=== PATIENT | female | born 1950 | race Caucasian/White ===

== ENCOUNTER 2018-06-28 16:09 | Emergency (ER) | payer OTHER ==
--- NOTE | 2018-06-28 16:25 | ER Document Report ---
ED Medical Screen (RME) - General Chief Complaint: Abdominal Pain Stated Complaint: ABDOMINAL PAIN Time Seen by Provider: 06/28/18 16:20 Mode of Arrival: Ambulatory Information source: Patient Notes: Patient is a 67-year-old female who presents to the emergency department with complaint of left lower quadrant pain that started while she was shopping this morning. She states that the pain came on in a short amount of time and describes it as a very sharp stabbing pain. She states the pain resolved and has come back intermittently. She denies any other symptoms to include nausea, vomiting, diarrhea or fevers. She reports she had abnormal bowel movement this morning and is not concerned about constipation. She states she has never had this pain before. Patient is alert, oriented and has no acute distress noted. Exam: Abdomen soft, nontender with no guarding and no rebound. I have greeted and performed a rapid initial assessment of this patient. A comprehensive ED assessment and evaluation of the patient, analysis of test results and completion of the medical decision making process will be conducted by additional ED providers. Dictation of this chart was performed using voice recognition software; therefore, there may be some unintended grammatical errors. TRAVEL OUTSIDE OF THE [place] IN LAST 30 DAYS: No - Related Data Allergies/Adverse Reactions: No Known Allergies Allergy (Verified 06/28/18 16:10) Physical Exam - Vital signs Vitals: Temp Pulse Resp BP Pulse Ox 98.0 F 93 16 155/79 H 98 06/28/18 16:14 06/28/18 16:14 06/28/18 16:14 06/28/18 16:14 06/28/18 16:14 Course - Vital Signs Vital signs: Temp Pulse Resp BP Pulse Ox 98.0 F 93 16 155/79 H 98 06/28/18 16:14 06/28/18 16:14 06/28/18 16:14 06/28/18 16:14 06/28/18 16:14
[2018-06-28 16:53] LABS: ABSOLUTE BASOPHILS # (AUTO) 0.1 10^3/uL (0.0-0.2); ABSOLUTE EOSINOPHILS # (AUTO) 0.2 10^3/uL (0.0-0.6); ABSOLUTE LYMPHOCYTES (AUTO) 2.4 10^3/uL (0.5-4.7); ABSOLUTE MONOCYTES (AUTO) 0.4 10^3/uL (0.1-1.4); ABSOLUTE NEUT (AUTO) 5.7 10^3/uL (1.7-8.2); BASOPHILS % (AUTO) 1.5 % (0-2); EOSINOPHILS % (AUTO) 2.6 % (0-6); HEMATOCRIT 43.2 % (36.0-47.0); HEMOGLOBIN 14.6 g/dL (12.0-15.5); LYMPHOCYTES % (AUTO) 26.9 % (13-45); MEAN CORPUSCULAR HGB CONC 33.7 g/dL (32.0-36.0); MEAN CORPUSCULAR VOLUME 86 fl (80-97); MONOCYTES % (AUTO) 4.8 % (3-13); PLATELET COUNT 232 10^3/uL (150-450); RED BLOOD COUNT 5.02 10^6/uL (3.72-5.28); RED CELL DISTRIBUTION WIDTH 14.4 % (11.5-14.0); SEGMENTED NEUTROPHILS % (AUTO) 64.2 % (42-78); TOTAL CELLS COUNTED % (AUTO) 100 %; WHITE BLOOD COUNT 8.8 10^3/uL (4.0-10.5)
[2018-06-28 17:09] LABS: ALANINE AMINOTRANSFERASE 40 U/L (9-52); ALBUMIN 4.8 g/dL (3.5-5.0); ALKALINE PHOSPHATASE 82 U/L (38-126); ANION GAP 13 (5-19); ASPARTATE AMINO TRANSFERASE 31 U/L (14-36); BILIRUBIN,DIRECT 0.3 mg/dL (0.0-0.4); BILIRUBIN,TOTAL 0.5 mg/dL (0.2-1.3); BLOOD UREA NITROGEN 14 mg/dL (7-20); CALCIUM 10.2 mg/dL (8.4-10.2); CARBON DIOXIDE 27 mmol/L (22-30); CHLORIDE 102 mmol/L (98-107); GLUCOSE 143 mg/dL (75-110); POTASSIUM 4.1 mmol/L (3.6-5.0); SODIUM 141.5 mmol/L (137-145)
[2018-06-28 17:14] LABS: APPEARANCE,URINE CLEAR; BILIRUBIN,URINE NEGATIVE (NEGATIVE); COLOR,URINE YELLOW; GLUCOSE, URINE NEGATIVE (NEGATIVE); KETONES,URINE NEGATIVE (NEGATIVE); LEUKOCYTE ESTERASE,URINE NEGATIVE (NEGATIVE); NITRITE,URINE NEGATIVE (NEGATIVE); PROTEIN,URINE NEGATIVE (NEGATIVE); URINE SPECIFIC GRAVITY 1.014; UROBILINOGEN,URINE NEGATIVE mg/dL (<2.0)
--- NOTE | 2018-06-28 17:56 | ER Document Report ---
ED GI/ - General Chief Complaint: Abdominal Pain Stated Complaint: ABDOMINAL PAIN Time Seen by Provider: 06/28/18 16:20 Mode of Arrival: Ambulatory Information source: Patient TRAVEL OUTSIDE OF THE [place] IN LAST 30 DAYS: No - HPI Patient complains to provider of: Abdominal pain Notes: 06/28/18 17:55 Patient with complaints of left lower quadrant abdominal pain. The patient states that she has been having the pain for the last several hours today. She states that the pain comes and goes. She states that it feels like a tingling sensation in the left lower quadrant. She denies any pain currently. She denies any nausea, vomiting, diarrhea. No dysuria or hematuria. No chest pain or shortness of breath. No fever. No rash. No injury to this area. She states that she did fall a few weeks ago landing on her coccyx and continues to have some pain in this area. She has had prior cholecystectomy, no other prior abdominal surgeries. Pain is intermittent, mild to moderate, nothing makes it better or worse. Patient denies any other complaints at this time. No history of kidney stones. - Related Data Allergies/Adverse Reactions: No Known Allergies Allergy (Verified 06/28/18 16:10) Past Medical History - General Information source: Patient - Social History Smoking Status: Former Smoker Family History: Reviewed & Not Pertinent Patient has suicidal ideation: No Patient has homicidal ideation: No Renal/ Medical History: Denies: Hx Peritoneal Dialysis Past Surgical History: Reports: Hx Breast Surgery, Hx Cholecystectomy, Hx Tubal Ligation Review of Systems - Review of Systems -: Yes All other systems reviewed and negative Physical Exam - Vital signs Vitals: Temp Pulse Resp BP Pulse Ox 98.0 F 93 16 155/79 H 98 06/28/18 16:14 06/28/18 16:14 06/28/18 16:14 06/28/18 16:14 06/28/18 16:14 - Notes Notes: GENERAL: alert, cooperative, nontoxic, no distress. HEAD: normocephalic, atraumatic EYES: conjunctiva pink without discharge, no external redness or swelling. EARS: no external swelling, no external redness NOSE: atraumatic, no external swelling MOUTH/THROAT: mucous membranes moist and pink, posterior pharynx without erythem a, swelling, exudate. No trismus or drooling. NECK: soft, supple, full range of motion, no meningismus. CHEST: no distress, lungs clear and equal throughout. No wheezing, rales, rhonchi. CARDIAC: regular rate and rhythm, no murmur, normal capillary refill, normal pulses. No peripheral edema noted. ABDOMEN: Soft, nontender. BACK: full range of motion, no CVA tenderness. EXTREMITIES: full range of motion of all extremities. No redness, no swelling. NEURO: alert and oriented x 3, no focal deficits, full range of motion of all extremities. PYSCH: appropriate mood, affect. Patient is cooperative. SKIN: pink, warm, dry, no rash. Course - Re-evaluation Re-evalutation: 06/28/18 19:25 Patient is nontoxic-appearing with stable vitals. Patient is here with complaints of left lower quadrant pain that started earlier today. The pain seems to come and go. No vomiting or diarrhea. No fevers. She had no significant tenderness on exam at this time. Lab work is unremarkable. Urinalysis is unremarkable. CT of the abdomen and pelvis shows diverticulosis with possible early diverticulitis of the sigmoid colon. Patient will be given a dose of antibiotics here in emergency department will be discharged home with pain medication as well as Cipro and Flagyl. Referral to GI. Follow-up with her doctor at the next available appointment. I discussed food items that she should avoid eating due to her diverticulosis/diverticulitis. She should follow-up sooner if she develops any worsening pain, high fever, persistent vom iting, blood in her stool, or for any further concerns. Since the patient is afebrile, has a normal white count, has no abscess or perforation on her CT and has very early/mild diverticulitis, I do believe that the patient is safe for discharge home with oral antibiotics. The patient's emergency department workup and current diagnosis were explained to the patient and or family. Follow-up instructions were provided. Medications if prescribed were discussed. Instructions for when to return to the emergency department including specific worrisome symptoms were discussed with the patient and/or family. - Vital Signs Vital signs: Temp Pulse Resp BP Pulse Ox 98.0 F 93 16 155/79 H 98 06/28/18 16:14 06/28/18 16:14 06/28/18 16:14 06/28/18 16:14 06/28/18 16:14 - Laboratory Result Diagrams: 06/28/18 16:42 06/28/18 16:42 Laboratory results interpreted by me: 06/28/18 06/28/18 16:42 16:42 RDW 14.4 H Glucose 143 H - Diagnostic Test Radiology reviewed: Image reviewed, Reports reviewed - Diverticulosis with possible early diverticulitis of the sigmoid colon. Pars defect with anterior listhesis. Discharge - Discharge Clinical Impression: Diverticulitis Condition: Stable Disposition: HOME, SELF-CARE Instructions: Diverticulitis ([facility]) Additional Instructions: Take medications as prescribed. Drink plenty fluids. Follow-up with your doctor at the next available appointment. Follow-up with GI at the next available appointment. Follow-up sooner for worsening pain, high fever, persistent vomiting, blood in your stool, or for any further concerns. Prescriptions: Ciprofloxacin HCl [Cipro 500 mg Tablet] 500 mg PO BID #20 tablet Fluconazole [Diflucan 100 Mg Tablet] 100 mg PO ONCE #1 tablet Hydrocodone/Acetaminophen [[place] 5-325 mg Tablet] 2 tab PO Q6H PRN #15 tab PRN Reason: Metronidazole [Flagyl 500 mg Tablet] 500 mg PO Q6H #40 tablet Referrals: FREDERIC MARQUES MD [ACTIVE STAFF] - Follow up as needed
--- NOTE | 2018-06-28 18:57 | RADIOLOGY REPORT (SQ) ---
EXAM DESCRIPTION: CT ABD/PELVIS WITH IV ONLY COMPLETED DATE/TIME: 06/28/2018 6:28 pm REASON FOR STUDY: LLQ abdominal pain COMPARISON: None. TECHNIQUE: CT scan of the abdomen and pelvis performed using helical scanning technique with dynamic intravenous contrast injection. No oral contrast. Images reviewed with lung, soft tissue, and bone windows. Reconstructed coronal and sagittal MPR images reviewed. Delayed images for evaluation of the urinary system also acquired. All images stored on PACS. All CT scanners at this facility use dose modulation, iterative reconstruction, and/or weight based d osing when appropriate to reduce radiation dose to as low as reasonably achievable (ALARA). [facility]: Dose Right [facility]: CareDose [facility]: Dose Right [facility]: Teradose 4D [facility]: [facility] CONTRAST TYPE AND DOSE: contrast/concentration: Isovue 350.00 mg/ml; Total Contrast Delivered: 98.0 ml; Total Saline Delivered: 72.0 ml RENAL FUNCTION: Creatinine 0.90 RADIATION DOSE: CT Rad equipment meets quality standard of care and radiation dose reduction techniq ues were employed. CTDIvol: 15.6 - 19.0 mGy. DLP: 1882 mGy-cm.. LIMITATIONS: None. FINDINGS: LOWER CHEST: No consolidation or pleural effusion. Coronary arteries calcifications are n oted. LIVER: The liver is enlarged measuring 21.3 cm in craniocaudal diameter. There is diffuse decreased attenuation, most consistent with fatty infiltration. There is a 2.6 cm lesion with peripheral nodul ar enhancement on the early phase of contrast, this becomes isodense on the delayed images, at the in ferior right hepatic lobe, segment 5, appearance most consistent with a hemangioma. No dilated ducts . SPLEEN: Normal size. No focal lesions. PANCREAS: No significant calcifications. No adjacent inflammation or peripancreatic fluid collections . Pancreatic duct not dilated. GALLBLADDER: Surgically absent. ADRENAL GLANDS: No significant masses or asymmetry. RIGHT KIDNEY AND URETER: No significant calcifications. No hydronephrosis or hydroureter. LEFT KIDNEY AND URETER: There is a 2.3 cm cyst at the left kidney. No significant calcifications. No hydronephrosis or hydroureter. AORTA AND VESSELS: Atherosclerotic calcifications within the abdominal aorta and its branches. No ab dominal aortic aneurysm. There is a circumaortic left renal vein. RETROPERITONEUM: No retroperitoneal adenopathy, hemorrhage or masses. BOWEL AND PERITONEAL CAVITY: No dilated bowel loops to suggest obstruction. No free fluid or free ai r. There is colonic diverticulosis. Mild soft tissue stranding adjacent to the sigmoid colon. APPENDIX: Normal. PELVIS: The urinary bladder is decompressed. The uterus is present. Bilateral tubal ligation clips are noted. No free fluid. ABDOMINAL WALL: Small fat containing umbilical hernia. BONES: There is bilateral pars defect at L5 with mild anterolisthesis of L5 on S1. There is multilev el degenerative disc disease with osteophytosis, worse at L5-S1. IMPRESSION: 1. Colonic diverticulosis. Mild inflammatory changes adjacent to the sigmoid colon, m ay represent mild/early acute diverticulitis. 2. 2.6 cm hepatic hemangioma. Hepatomegaly. Fatty infiltration of the liver. 3. Bilateral pars defect at L5 with mild anterolisthesis of L5 on S1. TECHNICAL DOCUMENTATION: JOB ID: [id number]-64 Quality ID # [id number]: Final reports with documentation of one or more dose reduction techniques (e.g., Au tomated exposure control, adjustment of the mA and/or kV according to patient size, use of iterative reconstruction technique) 2010 [employer]- All Rights Reserved Reading location - IP/workstation name: [email or web address]
[2018-06-28] MEDS ORDERED: CIPROFLOXACIN HCL 500 MG TABLET PO ONE (19:44)
[2018-06-28] MEDS ORDERED: METRONIDAZOLE 500 MG TABLET PO ONE (19:44)
[2018-06-28 20:14] VITALS: BP 143/75
== END 2018-06-28 20:14 | disposition home or self-care (01) ==
LOC: ER 16:09
DX: K57.92 Diverticulitis of intestine, part unspecified, without perforation or abscess without bleeding (principal); R10.9 Unspecified abdominal pain; R10.32 Left lower quadrant pain; W19.XXXA Unspecified fall, initial encounter; Z90.49 Acquired absence of other specified parts of digestive tract; Z87.891 Personal history of nicotine dependence
CPT/HCPCS: 36415; 74177; 80053; 81001; 85025; 99284

== ENCOUNTER 2018-07-31 21:33 | Inpatient (IN) | payer OTHER, MEDICARE ==
[2018-07-31] MEDS ORDERED: ACETAMINOPHEN 325 MG TABLET PO ONE (22:12)
--- NOTE | 2018-07-31 23:14 | RADIOLOGY REPORT (SQ) ---
EXAM DESCRIPTION: XR CHEST 2 VIEWS COMPLETED DATE/TME: 07/31/2018 22:13 CLINICAL HISTORY: 68 years, Female, fever COMPARISON: None. NUMBER OF VIEWS: 2 TECHNIQUE: 2 views of the chest LIMITATIONS: None. FINDINGS: Heart size is normal. Lungs are clear. No pneumothorax. Surgical clips upper abdomen IMPRESSION: No acute cardiopulmonary process copyright 2010 [employer]- All Rights Reserved
[2018-07-31 23:43] LABS: VENOUS BLOOD BASE EXCESS 3.7 mmol/L; VENOUS BLOOD HCO3 28.9 mmol/L (20-32); VENOUS BLOOD PCO2 45.3 mmHg (35-63); VENOUS BLOOD PH 7.42 (7.30-7.42)
[2018-07-31 23:47] LABS: HEMATOCRIT 37.5 % (36.0-47.0); HEMOGLOBIN 12.7 g/dL (12.0-15.5); MEAN CORPUSCULAR HEMOGLOBIN 28.7 pg (27.0-33.4); MEAN CORPUSCULAR VOLUME 85 fl (80-97); RED BLOOD COUNT 4.44 10^6/uL (3.72-5.28); RED CELL DISTRIBUTION WIDTH 14.1 % (11.5-14.0)
[2018-07-31 23:50] LABS: APPEARANCE,URINE SLIGHTLY-CLOUDY; BILIRUBIN,URINE NEGATIVE (NEGATIVE); COLOR,URINE AMBER; GLUCOSE, URINE NEGATIVE (NEGATIVE); INTERNATIONAL RATION (INR) 1.06; KETONES,URINE NEGATIVE (NEGATIVE); LEUKOCYTE ESTERASE,URINE SMALL (NEGATIVE); NITRITE,URINE NEGATIVE (NEGATIVE); PROTEIN,URINE 100 mg/dL (NEGATIVE); PROTHROMBIN TIME 14.4 SEC (11.4-15.4); URINE SPECIFIC GRAVITY 1.028
[2018-08-01 00:03] LABS: ABSOLUTE LYMPHOCYTES# (MANUAL) 1.1 10^3/uL (0.5-4.7); ABSOLUTE MONOCYTES # (MANUAL) 1.5 10^3/uL (0.1-1.4); ABSOLUTE NEUTROPHILS# (MANUAL) 11.2 10^3/uL (1.7-8.2); BAND NEUTROPHILS % (MANUAL) 2 % (3-5); BASOPHILS % (MANUAL) 0 % (0-2); EOSINOPHILS % (MANUAL) 1 % (0-6); LYMPHOCYTES % (MANUAL) 8 % (13-45); MONOCYTES % (MANUAL) 11 % (3-13); PLATELET CLUMPS PRESENT; PLATELET COMMENT ADEQUATE; SEGMENTED NEUTROPHILS % (MAN) 78 % (42-78); TOTAL CELLS COUNTED 100
[2018-08-01 00:04] LABS: PLATELET COUNT 216 10^3/uL (150-450); RBC MORPHOLOGY COMMENT NORMO-CYTIC/CHROMIC
[2018-08-01 00:13] LABS: ALANINE AMINOTRANSFERASE 44 U/L (9-52); ALBUMIN 4.1 g/dL (3.5-5.0); ALKALINE PHOSPHATASE 160 U/L (38-126); ANION GAP 16 (5-19); ASPARTATE AMINO TRANSFERASE 60 U/L (14-36); BILIRUBIN,DIRECT 0.5 mg/dL (0.0-0.4); BILIRUBIN,TOTAL 0.8 mg/dL (0.2-1.3); BLOOD UREA NITROGEN 19 mg/dL (7-20); CALCIUM 9.9 mg/dL (8.4-10.2); CARBON DIOXIDE 25 mmol/L (22-30); CHLORIDE 94 mmol/L (98-107); GLUCOSE 127 mg/dL (75-110); POTASSIUM 4.4 mmol/L (3.6-5.0); SODIUM 134.5 mmol/L (137-145); TOTAL PROTEIN 7.3 g/dL (6.3-8.2)
--- NOTE | 2018-08-01 01:44 | ER Document Report ---
ED Medical Screen (RME) - General Chief Complaint: Fever Stated Complaint: FEVER AND HEADACHE Time Seen by Provider: 08/01/18 01:38 Notes: 68-year-old otherwise healthy female presents to emergency department for fever and chills, multiple boils, and severe headache. She said that she has had boils started developing about a week ago and have gotten to the point where she is unable to sit comfortably. There is one in her right gluteal cleft, another one in her right proximal medial thigh, and another one in her lower abdomen. She says she has another small one on her face and 2 small ones on her labia of her vagina. Patient is tachycardic at 108. Patient has been running fevers greater than 102 but took Aleve at 1900 tonight. Exam: Right gluteal cleft with a large erythematous area that is indurated and painful to touch. Right proximal medial thigh with large area of induration and surrounding erythema that appears cellulitic with small amount of purulent oozing. Erythematous area on her lower abdomen with a scab. I have greeted and performed a rapid initial assessment of this patient. A comprehensive ED assessment and evaluation of the patient, analysis of test results and completion of medical decision making process will be conducted by an additional ED providers. TRAVEL OUTSIDE OF THE [place] IN LAST 30 DAYS: No - Related Data Allergies/Adverse Reactions: No Known Allergies Allergy (Verified 06/28/18 16:10) Past Medical History Renal/ Medical History: Denies: Hx Peritoneal Dialysis Past Surgical History: Reports: Hx Breast Surgery, Hx Cholecystectomy, Hx Tubal Ligation Physical Exam - Vital signs Vitals: Temp Pulse Resp BP Pulse Ox 100.3 F 109 H 18 117/66 96 07/31/18 21:47 07/31/18 21:47 07/31/18 21:47 07/31/18 21:47 07/31/18 21:47 Course - Vital Signs Vital signs: Temp Pulse Resp BP Pulse Ox 100.3 F 109 H 18 117/66 96 07/31/18 21:47 07/31/18 21:47 07/31/18 21:47 07/31/18 21:47 07/31/18 21:47 - Laboratory Result Diagrams: 07/31/18 23:21 07/31/18 23:21 Laboratory results interpreted by me: 07/31/18 07/31/18 07/31/18 23:21 23:21 23:21 WBC 14.0 H RDW 14.1 H Band Neutrophils % 2 L Lymphocytes % (Manual) 8 L Abs Neuts (Manual) 11.2 H Abs Monocytes (Manual) 1.5 H Sodium 134.5 L Chloride 94 L Est GFR (Non-Af Amer) 57 L Glucose 127 H Direct Bilirubin 0.5 H AST 60 H Alkaline Phosphatase 160 H Urine Protein 100 H Urine Urobilinogen 4.0 H Ur Leukocyte Esterase SMALL H Urine Ascorbic Acid 20 H
[2018-08-01] MEDS ORDERED: ACETAMINOPHEN 325 MG TABLET ONE (03:32)
[2018-08-01] MEDS ORDERED: VANCOMYCIN HCL INJ 1000 MG VIAL IV ONE (05:46)
[2018-08-01] MEDS ORDERED: METOCLOPRAMIDE HCL INJ/PF 10 MG/2 ML SDV IV ONE (05:46)
[2018-08-01] MEDS ORDERED: DIPHENHYDRAMINE HCL 50 MG/ML VIAL IV ONE (05:46)
[2018-08-01] MEDS: NORMAL SALINE 1000 ML 1,000 ML IV PRN ×3 (05:50→10:49)
[2018-08-01] MEDS ORDERED: NORMAL SALINE 1000 ML 1,000 ML IV ONE (06:44)
[2018-08-01 07:33] LABS: ALANINE AMINOTRANSFERASE 41 U/L (9-52); ALBUMIN 3.1 g/dL (3.5-5.0); ALKALINE PHOSPHATASE 123 U/L (38-126); ANION GAP 10 (5-19); ASPARTATE AMINO TRANSFERASE 33 U/L (14-36); BILIRUBIN,DIRECT 0.4 mg/dL (0.0-0.4); BILIRUBIN,TOTAL 0.7 mg/dL (0.2-1.3); BLOOD UREA NITROGEN 18 mg/dL (7-20); CALCIUM 8.8 mg/dL (8.4-10.2); CARBON DIOXIDE 25 mmol/L (22-30); CHLORIDE 99 mmol/L (98-107); CREATINE KINASE 35 U/L (30-135); GLUCOSE 117 mg/dL (75-110); POTASSIUM 3.9 mmol/L (3.6-5.0); SODIUM 133.5 mmol/L (137-145); TOTAL PROTEIN 5.7 g/dL (6.3-8.2)
[2018-08-01 07:35] LABS: HEMATOCRIT 33.5 % (36.0-47.0); HEMOGLOBIN 11.3 g/dL (12.0-15.5); MEAN CORPUSCULAR HEMOGLOBIN 28.5 pg (27.0-33.4); MEAN CORPUSCULAR HGB CONC 33.8 g/dL (32.0-36.0); MEAN CORPUSCULAR VOLUME 84 fl (80-97); PLATELET COUNT 175 10^3/uL (150-450); RED BLOOD COUNT 3.97 10^6/uL (3.72-5.28); WHITE BLOOD COUNT 13.9 10^3/uL (4.0-10.5)
[2018-08-01 07:41] LABS: AMORPHOUS SEDIMENT,URINE 1+ /HPF; APPEARANCE,URINE SLIGHTLY-CLOUDY; BILIRUBIN,URINE NEGATIVE (NEGATIVE); COLOR,URINE YELLOW; GLUCOSE, URINE NEGATIVE (NEGATIVE); KETONES,URINE NEGATIVE (NEGATIVE); LEUKOCYTE ESTERASE,URINE NEGATIVE (NEGATIVE); NITRITE,URINE NEGATIVE (NEGATIVE); PROTEIN,URINE NEGATIVE (NEGATIVE); URINE SPECIFIC GRAVITY 1.012; UROBILINOGEN,URINE NEGATIVE mg/dL (<2.0)
--- NOTE | 2018-08-01 07:44 | EKG REPORT ---
SEVERITY:- NORMAL ECG - SINUS RHYTHM : Confirmed by: Allen Elias MD 01-Aug-2018 07:43:16
[2018-08-01 08:06] LABS: ABSOLUTE LYMPHOCYTES# (MANUAL) 0.3 10^3/uL (0.5-4.7); ABSOLUTE MONOCYTES # (MANUAL) 0.8 10^3/uL (0.1-1.4); ABSOLUTE NEUTROPHILS# (MANUAL) 12.5 10^3/uL (1.7-8.2); BAND NEUTROPHILS % (MANUAL) 6 % (3-5); BASOPHILS % (MANUAL) 2 % (0-2); EOSINOPHILS % (MANUAL) 0 % (0-6); LYMPHOCYTES % (MANUAL) 2 % (13-45); MONOCYTES % (MANUAL) 6 % (3-13); SEGMENTED NEUTROPHILS % (MAN) 84 % (42-78); TOTAL CELLS COUNTED 100
[2018-08-01 08:07] LABS: ANISOCYTOSIS SLIGHT; PLATELET COMMENT ADEQUATE
--- NOTE | 2018-08-01 08:39 | ER Document Report ---
Entered by INGRID VIVEROS SCRIBE 08/01/18 0721 Acting as scribe for:NICOLE MEDEL MD ED General - General Chief Complaint: Fever Stated Complaint: FEVER AND HEADACHE Time Seen by Provider: 08/01/18 01:38 Primary Care Provider: JANET,AUDREY [Primary Care Provider] - Follow up as needed Mode of Arrival: Ambulatory Information source: Patient Notes: 68 year old female that presents to the emergency department today with complaints of a x5 day history of "multiple boils" spread across her body. Patient reports she has had an associated headache as well for the last x5 days. Patient states she has also had an associated headache for x4 of the last x5 days. Patient states she was in a bathtub when she noticed the first boil which was located on the right buttock. Patient states the other boils appears shortly after. TRAVEL OUTSIDE OF THE [place] IN LAST 30 DAYS: No - Related Data Allergies/Adverse Reactions: No Known Allergies Allergy (Verified 06/28/18 16:10) Past Medical History - General Information source: Patient - Social History Smoking Status: Former Smoker Cigarette use (# per day): No - quit x25 years ago Chew tobacco use (# tins/day): No Frequency of alcohol use: Rare Drug Abuse: None Lives with: Family Family History: Reviewed & Not Pertinent Patient has suicidal ideation: No Patient has homicidal ideation: No Past Surgical History: Reports: Hx Breast Surgery - reduction, Hx Cholecystectomy, Hx Tubal Ligation Review of Systems - Review of Systems Constitutional: No symptoms reported EENT: No symptoms reported Cardiovascular: No symptoms reported Respiratory: No symptoms reported Gastrointestinal: No symptoms reported Genitourinary: No symptoms reported Female Genitourinary: No symptoms reported Musculoskeletal: No symptoms reported Skin: See HPI, Lesions Hematologic/Lymphatic: No symptoms reported Neurological/Psychological: See HPI, Headaches -: Yes All other systems reviewed and negative Physical Exam - Vital signs Vitals: Temp Pulse Resp BP Pulse Ox 100.3 F 109 H 18 117/66 96 07/31/18 21:47 07/31/18 21:47 07/31/18 21:47 07/31/18 21:47 07/31/18 21:47 - Notes Notes: GENERAL: Alert, interacts well. No acute distress. HEAD: Normocephalic, atraumatic. EYES: Pupils equal, round, and reactive to light. Extraocular movements intact. ENT: Oral mucosa moist, tongue midline. NECK: Full range of motion. Supple. Trachea midline. LUNGS: Clear to auscultation bilaterally, no wheezes, rales, or rhonchi. No respiratory distress. HEART: Regular rate and rhythm. No murmurs, gallops, or rubs. ABDOMEN: Soft, non-tender. Non-distended. Bowel sounds present in all 4 quadrants. No guarding, rigidity, or rebound. EXTREMITIES: Moves all 4 extremities spontaneously. No edema, radial and dorsalis pedis pulses 2/4 bilaterally. No cyanosis. NEUROLOGICAL: Alert and oriented x3. Normal speech. PSYCH: Normal affect, normal mood. SKIN: Multiple abscesses. Large erythematous indurated area to right lower quadrant, area beginning to point. Large erythematous indurated area to right buttock, area beginning to point. Large erythematous indurated area to anterior lateral proximal right thigh, area beginning to point. Small indurated scar thematous area to labia and left chin. Course - Vital Signs Vital signs: Temp Pulse Resp BP Pulse Ox 98.4 F 83 20 60/37 L 97 08/01/18 05:29 08/01/18 05:29 08/01/18 08:31 08/01/18 08:31 08/01/18 08:31 - Laboratory Result Diagrams: 08/01/18 05:50 08/01/18 05:50 Laboratory results interpreted by me: 07/31/18 07/31/18 07/31/18 23:21 23:21 23:21 WBC 14.0 H Hgb Hct RDW 14.1 H Seg Neuts % (Manual) Band Neutrophils % 2 L Lymphocytes % (Manual) 8 L Abs Neuts (Manual) 11.2 H Abs Lymphs (Manual) Abs Monocytes (Manual) 1.5 H Abs Basophils (Manual) Sodium 134.5 L Chloride 94 L Est GFR (Non-Af Amer) 57 L Glucose 127 H Direct Bilirubin 0.5 H AST 60 H Alkaline Phosphatase 160 H Total Protein Albumin Urine Protein 100 H Urine Urobilinogen 4.0 H Ur Leukocyte Esterase SMALL H Urine Ascorbic Acid 20 H 08/01/18 08/01/18 05:50 05:50 WBC 13.9 H Hgb 11.3 L Hct 33.5 L RDW Seg Neuts % (Manual) 84 H Band Neutrophils % 6 H Lymphocytes % (Manual) 2 L Abs Neuts (Manual) 12.5 H Abs Lymphs (Manual) 0.3 L Abs Monocytes (Manual) Abs Basophils (Manual) 0.3 H Sodium 133.5 L Chloride Est GFR (Non-Af Amer) 57 L Glucose 117 H Direct Bilirubin AST Alkaline Phosphatase Total Protein 5.7 L Albumin 3.1 L Urine Protein Urine Urobilinogen Ur Leukocyte Esterase Urine Ascorbic Acid - EKG Interpretation by Me EKG shows normal: Sinus rhythm, Finley, Intervals, QRS Complexes, ST-T Waves Rate: Normal - 94 Rhythm: NSR - Consults Dr. Morales Time consulted: 08:44 Consulted provider: will come to ER Critical Care Note - Critical Care Note Total time excluding time spent on procedures (mins): 40 Discharge - Discharge Clinical Impression: Abscess of multiple sites Hypotension Qualifiers: Hypotension type: unspecified hypotension type Qualified Code(s): I95.9 - Hypotension, unspecified Fever Qualifiers: Fever type: unspecified Qualified Code(s): R50.9 - Fever, unspecified Leukocytosis Qualifiers: Leukocytosis type: bandemia Qualified Code(s): D72.825 - Bandemia Condition: Fair Disposition: ADMITTED INPATIENT Admitting Provider: Andrew (Hospitalist) Unit Admitted: [facility]: [facility] [[facility]] - Follow up as needed Scribe Attestation: 08/01/18 07:22 I personally performed the services described in the documentation, reviewed and edited the documentation which was dictated to the scribe in my presence, and it accurately records my words and actions. 08/01/18 0722 I personally performed the services described in the documentation, reviewed and edited the documentation which was dictated to the scribe in my presence, and it accurately records my words and actions.
[2018-08-01] MEDS ORDERED: CLINDAMYCIN 600 MG/D5W RTU 600 MG/50 ML RTUPB IV ONE (08:43)
[2018-08-01] MEDS ORDERED: RINGERS SOLUTION,LACTATED 1,000 ML IV ONE (08:44)
[2018-08-01] MEDS ORDERED: ACETAMINOPHEN 325 MG TABLET PO PRN (09:12)
[2018-08-01] MEDS ORDERED: MORPHINE SULFATE 10 MG/ML INJ IV PRN ×2 (09:20→12:14)
--- NOTE | 2018-08-01 09:32 | PDOC H&P ---
History of Present Illness Admission Date/PCP: 08/01/18 08:57 [facility] Patient complains of: Multiple abscess on the abdomen, right inner thigh, right buttock and in the vaginal area for the last 3 days. History of Present Illness: KRISHNA SAMUELS is a 68 year old female with no significant current past medical history came to the emergency room with complaints of development of skin lesions on the right buttock in the vaginal area right inner thigh and on the ab dominal wall for the last 6 days. She had a fever of 102 at home in the emergency room last night is 101.2. Her blood pressure systolic blood pressure dropped to 70 this morning. Patient is asymptomatic communicating well. Prior to these symptoms she was here in the emergency room few weeks ago diagnosed with diverticulitis and was discharged on p.o. antibiotics. She completed 10 days course of antibiotics 6 days after the finishing the antibiotics the skin lesions developed. Denies any nausea vomiting diarrhea or constipation. Complaining of severe headaches. Denies any blurred vision. Denies any urinary symptoms. Denies any recent change in medications. She never had this problem before in her life.medical Consult was called for admission to [facility]. Past Medical History Cardiac Medical History: Reports: None Pulmonary Medical History: Reports: None EENT Medical History: Reports: None Neurological Medical History: Reports: None Renal/ Medical History: Reports: None Malignancy Medical History: Reports: None GI Medical History: Reports: None Musculoskeltal Medical History: Reports: None Psychiatric Medical History: Reports: None Hematology: Reports: None Past Surgical History Past Surgical History: Reports: Cholecystectomy, Tubal Ligation, Other - Breast reduction surgery. Social History Information Source: Patient Lives with: Family Smoking Status: Former Smoker Frequency of Alcohol Use: None Hx Recreational Drug Use: No - Advance Directive Resuscitation Status: Full Code Family History Family History: Reviewed & Not Pertinent Parental Family History Reviewed: Yes - Father with congestive heart failure mother with brain tumor. Children Family History Reviewed: Yes Sibling(s) Family History Reviewed.: Yes Medication/Allergy Home Medications: Ciprofloxacin HCl [Cipro 500 mg Tablet] 500 mg PO BID #20 tablet 06/28/18 Fluconazole [Diflucan 100 Mg Tablet] 100 mg PO ONCE #1 tablet 06/28/18 Hydrocodone/Acetaminophen [[place] 5-325 mg Tablet] 2 tab PO Q6H PRN #15 tab 06/28/18 Metronidazole [Flagyl 500 mg Tablet] 500 mg PO Q6H #40 tablet 06/28/18 Allergies/Adverse Reactions: No Known Allergies Allergy (Verified 06/28/18 16:10) Review of Systems Constitutional: PRESENT: chills, fatigue, fever(s), headache(s), weakness Eyes: ABSENT: visual disturbances Ears: ABSENT: hearing changes Nose, Mouth, and Throat: ABSENT: sore throat Cardiovascular: ABSENT: chest pain, dyspnea on exertion, edema, orthropnea, palpitations Respiratory: ABSENT: cough, hemoptysis Gastrointestinal: ABSENT: abdominal pain, constipation, diarrhea, hematemesis, hematochezia, nausea, vomiting Genitourinary: ABSENT: dysuria, hematuria Musculoskeletal: ABSENT: joint swelling Integumentary: PRESENT: lesions, other - Developed multiple skin lesions/abscesses on the anterior abdominal wall, right inner thigh, right buttock, vaginal area. Neurological: ABSENT: abnormal gait, abnormal speech, confusion, dizziness, focal weakness, syncope Psychiatric: ABSENT: anxiety, depression, homidical ideation, suicidal ideation Endocrine: ABSENT: cold intolerance, heat intolerance, polydipsia, polyuria Physical Exam Vital Signs: Temp Pulse Resp BP Pulse Ox 98.4 F 83 20 60/37 L 97 08/01/18 05:29 08/01/18 05:29 08/01/18 08:31 08/01/18 08:31 08/01/18 08:31 Intake & Output 07/31/18 08/01/18 08/02/18 06:59 06:59 06:59 Intake Total 1999 1000 Balance 1999 1000 Weight 84.5 kg General appearance: PRESENT: no acute distress, obese Head exam: PRESENT: atraumatic Eye exam: PRESENT: PERRLA Mouth exam: PRESENT: moist, tongue midline Neck exam: ABSENT: carotid bruit, JVD, lymphadenopathy, thyromegaly Respiratory exam: PRESENT: clear to auscultation albert. ABSENT: rales, rhonchi, wheezes Cardiovascular exam: PRESENT: RRR. ABSENT: diastolic murmur, rubs, systolic murmur Pulses: PRESENT: normal dorsalis pedis pul GI/Abdominal exam: PRESENT: normal bowel sounds, soft. ABSENT: distended, guarding, mass, organolmegaly, rebound, tenderness Rectal exam: PRESENT: deferred Gentrourinary exam: PRESENT: other - Boils present on the labial folds. Neurological exam: PRESENT: alert, awake, oriented to person, oriented to place, oriented to time, oriented to situation, CN II-XII grossly intact. ABSENT: motor sensory deficit Psychiatric exam: PRESENT: appropriate affect, normal mood. ABSENT: homicidal ideation, suicidal ideation Skin exam: PRESENT: other - Large abscess on the anterior abdominal wall, and a large abscess on the right inner thigh, abscess on the right buttock and small skin lesions in the labial folds in the vaginal area. Results Laboratory Results: 08/01/18 05:50 08/01/18 05:50 07/31/18 07/31/18 07/31/18 23:21 23:21 23:21 WBC 14.0 H RBC 4.44 Hgb 12.7 Hct 37.5 MCV 85 MCH 28.7 MCHC 34.0 RDW 14.1 H Plt Count 216 Seg Neutrophils % Not Reportable Lymphocytes % Not Reportable Monocytes % Not Reportable Eosinophils % Not Reportable Basophils % Not Reportable Absolute Neutrophils Not Reportable Absolute Lymphocytes Not Reportable Absolute Monocytes Not Reportable Absolute Eosinophils Not Reportable Absolute Basophils Not Reportable VBG pH VBG pCO2 VBG HCO3 VBG Base Excess Sodium 134.5 L Potassium 4.4 Chloride 94 L Carbon Dioxide 25 Anion Gap 16 BUN 19 Creatinine 0.98 Est GFR ( Amer) > 60 Est GFR (Non-Af Amer) 57 L Glucose 127 H Lactic Acid 0.8 Calcium 9.9 Total Bilirubin 0.8 AST 60 H ALT 44 Alkaline Phosphatase 160 H Total Protein 7.3 Albumin 4.1 Urine Color Urine Appearance Urine pH Ur Specific [place] Urine Protein Urine Glucose (UA) Urine Ketones Urine Blood Urine Nitrite Ur Leukocyte Esterase Urine WBC (Auto) Urine RBC (Auto) 07/31/18 07/31/18 08/01/18 23:21 23:21 05:50 WBC 13.9 H RBC 3.97 Hgb 11.3 L Hct 33.5 L MCV 84 MCH 28.5 MCHC 33.8 RDW 14.0 Plt Count 175 Seg Neutrophils % Not Reportable Lymphocytes % Not Reportable Monocytes % Not Reportable Eosinophils % Not Reportable Basophils % Not Reportable Absolute Neutrophils Not Reportable Absolute Lymphocytes Not Reportable Absolute Monocytes Not Reportable Absolute Eosinophils Not Reportable Absolute Basophils Not Reportable VBG pH 7.42 VBG pCO2 45.3 VBG HCO3 28.9 VBG Base Excess 3.7 Sodium Potassium Chloride Carbon Dioxide Anion Gap BUN Creatinine Est GFR ( Amer) Est GFR (Non-Af Amer) Glucose Lactic Acid Calcium Total Bilirubin AST ALT Alkaline Phosphatase Total Protein Albumin Urine Color RUBEN Urine Appearance SLIGHTLY-CLOUDY Urine pH 5.0 Ur Specific [place] 1.028 Urine Protein 100 H Urine Glucose (UA) NEGATIVE Urine Ketones NEGATIVE Urine Blood NEGATIVE Urine Nitrite NEGATIVE Ur Leukocyte Esterase SMALL H Urine WBC (Auto) 7 Urine RBC (Auto) 2 08/01/18 08/01/18 05:50 06:50 WBC RBC Hgb Hct MCV MCH MCHC RDW Plt Count Seg Neutrophils % Lymphocytes % Monocytes % Eosinophils % Basophils % Absolute Neutrophils Absolute Lymphocytes Absolute Monocytes Absolute Eosinophils Absolute Basophils VBG pH VBG pCO2 VBG HCO3 VBG Base Excess Sodium 133.5 L Potassium 3.9 Chloride 99 Carbon Dioxide 25 Anion Gap 10 BUN 18 Creatinine 0.97 Est GFR ( Amer) > 60 Est GFR (Non-Af Amer) 57 L Glucose 117 H Lactic Acid Calcium 8.8 Total Bilirubin 0.7 AST 33 ALT 41 Alkaline Phosphatase 123 Total Protein 5.7 L Albumin 3.1 L Urine Color YELLOW Urine Appearance SLIGHTLY-CLOUDY Urine pH 5.0 Ur Specific [place] 1.012 Urine Protein NEGATIVE Urine Glucose (UA) NEGATIVE Urine Ketones NEGATIVE Urine Blood NEGATIVE Urine Nitrite NEGATIVE Ur Leukocyte Esterase NEGATIVE Urine WBC (Auto) 4 Urine RBC (Auto) 0 08/01/18 05:50 Creatine Kinase 35 Impressions: Chest X-Ray 07/31/18 22:13 IMPRESSION: No acute cardiopulmonary process copyright 2010 [employer]- All Rights Reserved Assessment and Plan - Diagnosis (1) Abscess of multiple sites Is this a current diagnosis for this admission?: Yes Plan: 08/01/2018-patient is going to be admitted to [facility] because of multiple abscesses in different spots of the body associated with the significant hypotension. Plan to start on IV fluids normal saline at 100 cc/h. Surgical consult was requested. Wound cultures blood cultures urine cultures are requested. GI prophylaxis was initiated. Spoke to Dr. Singer's he plan to do I&D today ,so to hold the DVT prophylaxis. Presently on LORELEI hoses. Started on IV morphine 1 mg every 4 as needed for pain. Started on IV vancomycin and IV clindamycin. Plan to repeat the labs tomorrow. (2) Hypotension Qualifiers: Hypotension type: unspecified hypotension type Qualified Code(s): I95.9 - Hypotension, unspecified Is this a current diagnosis for this admission?: Yes Plan: 08/01/2018-patient systolic blood pressure this morning is 70. IV fluids are initiated in the emergency room blood pressure is improved to systolic 108 and diastolic around 70. Patient is asymptomatic. Hypotension most likely secondary to sepsis. Patient was requested to take bedrest and fall precautions are requested. (3) Leukocytosis Qualifiers: Leukocytosis type: bandemia Qualified Code(s): D72.825 - Bandemia Is this a current diagnosis for this admission?: Yes Plan: 08/01/2018-WBC count is 13,900 today leukocytosis most likely secondary to underlying sepsis. (4) Fever Qualifiers: Fever type: unspecified Qualified Code(s): R50.9 - Fever, unspecified Is this a current diagnosis for this admission?: Yes Plan: 08/01/2018-patient complains of fever of 102 at home in the emergency room it was 101.2, patient took Tylenol on the way to the hospital. Fever most likely secondary to underlying sepsis. (5) Sepsis Is this a current diagnosis for this admission?: Yes Plan: 08/01/2018-patient is going to be admitted with sepsis associated with hypotension. Blood cultures wound cultures urine cultures are requested started on IV fluids started on vancomycin and Zosyn. Lactic acid level on admission is 0.8 plan is to repeat the lactic acid levels. - Time Time Spent with patient: 25-34 minutes Medications reviewed and adjusted accordingly: Yes Anticipated discharge: Home
--- NOTE | 2018-08-01 09:45 | PDOC CONSULTATION ---
Consultation Consult Date: 08/01/18 Provider Consulted: DEWEY WARREN Consult reason:: multiple skin abscesses History of Present Illness Admission Date/PCP: 08/01/18 08:57 [facility] History of Present Illness: KRISHNA SAMUELS is a 68 year old female, healthy, recently seen in the ED for acute diverticulitis, started on a 10 course of oral abx, cpmpleted; 5 days ago she started noticing areas of skin redness, pain, with clear drainage (lower abdomen, right inner thigh, right buttock, right latgeral thigh, left vulva) and she presents to the ED with the above skin lesions. Past Medical History Cardiac Medical History: Reports: None Pulmonary Medical History: Reports: None EENT Medical History: Reports: None Neurological Medical History: Reports: None Renal/ Medical History: Reports: None Malignancy Medical History: Reports: None GI Medical History: Reports: None Musculoskeltal Medical History: Reports: None Psychiatric Medical History: Reports: None Hematology: Reports: None Past Surgical History Past Surgical History: Reports: Cholecystectomy, Tubal Ligation, Other - Breast reduction surgery. Social History Lives with: Family Smoking Status: Former Smoker Frequency of Alcohol Use: None Hx Recreational Drug Use: No - Advance Directive Resuscitation Status: Full Code Family History Family History: Reviewed & Not Pertinent Parental Family History Reviewed: No Children Family History Reviewed: No Sibling(s) Family History Reviewed.: No Medication/Allergy Home Medications: Ciprofloxacin HCl [Cipro 500 mg Tablet] 500 mg PO BID #20 tablet 06/28/18 Fluconazole [Diflucan 100 Mg Tablet] 100 mg PO ONCE #1 tablet 06/28/18 Hydrocodone/Acetaminophen [[place] 5-325 mg Tablet] 2 tab PO Q6H PRN #15 tab 06/28/18 Metronidazole [Flagyl 500 mg Tablet] 500 mg PO Q6H #40 tablet 06/28/18 Allergies/Adverse Reactions: No Known Allergies Allergy (Verified 06/28/18 16:10) Physical Exam Vital Signs: Temp Pulse Resp BP Pulse Ox 98.4 F 83 20 60/37 L 97 08/01/18 05:29 08/01/18 05:29 08/01/18 08:31 08/01/18 08:31 08/01/18 08:31 Intake & Output 07/31/18 08/01/18 08/02/18 06:59 06:59 06:59 Intake Total 1999 1000 Balance 1999 1000 Weight 84.5 kg General appearance: PRESENT: no acute distress Head exam: PRESENT: atraumatic Eye exam: PRESENT: EOMI Mouth exam: PRESENT: neck supple Neck exam: PRESENT: full ROM Respiratory exam: PRESENT: clear to auscultation albert Cardiovascular exam: PRESENT: RRR GI/Abdominal exam: PRESENT: soft Skin exam: PRESENT: other - multiple skin abscess of various size (lower a bdomen, right inner thigh, right buttock, right latgeral thigh, left vulva), largest in the abdomen, thigh, and buttock Results Laboratory Results: 08/01/18 05:50 08/01/18 05:50 07/31/18 07/31/18 07/31/18 23:21 23:21 23:21 WBC 14.0 H RBC 4.44 Hgb 12.7 Hct 37.5 MCV 85 MCH 28.7 MCHC 34.0 RDW 14.1 H Plt Count 216 Seg Neutrophils % Not Reportable Lymphocytes % Not Reportable Monocytes % Not Reportable Eosinophils % Not Reportable Basophils % Not Reportable Absolute Neutrophils Not Reportable Absolute Lymphocytes Not Reportable Absolute Monocytes Not Reportable Absolute Eosinophils Not Reportable Absolute Basophils Not Reportable VBG pH VBG pCO2 VBG HCO3 VBG Base Excess Sodium 134.5 L Potassium 4.4 Chloride 94 L Carbon Dioxide 25 Anion Gap 16 BUN 19 Creatinine 0.98 Est GFR ( Amer) > 60 Est GFR (Non-Af Amer) 57 L Glucose 127 H Lactic Acid 0.8 Calcium 9.9 Total Bilirubin 0.8 AST 60 H ALT 44 Alkaline Phosphatase 160 H Total Protein 7.3 Albumin 4.1 Urine Color Urine Appearance Urine pH Ur Specific [place] Urine Protein Urine Glucose (UA) Urine Ketones Urine Blood Urine Nitrite Ur Leukocyte Esterase Urine WBC (Auto) Urine RBC (Auto) 07/31/18 07/31/18 08/01/18 23:21 23:21 05:50 WBC 13.9 H RBC 3.97 Hgb 11.3 L Hct 33.5 L MCV 84 MCH 28.5 MCHC 33.8 RDW 14.0 Plt Count 175 Seg Neutrophils % Not Reportable Lymphocytes % Not Reportable Monocytes % Not Reportable Eosinophils % Not Reportable Basophils % Not Reportable Absolute Neutrophils Not Reportable Absolute Lymphocytes Not Reportable Absolute Monocytes Not Reportable Absolute Eosinophils Not Reportable Absolute Basophils Not Reportable VBG pH 7.42 VBG pCO2 45.3 VBG HCO3 28.9 VBG Base Excess 3.7 Sodium Potassium Chloride Carbon Dioxide Anion Gap BUN Creatinine Est GFR ( Amer) Est GFR (Non-Af Amer) Glucose Lactic Acid Calcium Total Bilirubin AST ALT Alkaline Phosphatase Total Protein Albumin Urine Color RUBEN Urine Appearance SLIGHTLY-CLOUDY Urine pH 5.0 Ur Specific [place] 1.028 Urine Protein 100 H Urine Glucose (UA) NEGATIVE Urine Ketones NEGATIVE Urine Blood NEGATIVE Urine Nitrite NEGATIVE Ur Leukocyte Esterase SMALL H Urine WBC (Auto) 7 Urine RBC (Auto) 2 08/01/18 08/01/18 05:50 06:50 WBC RBC Hgb Hct MCV MCH MCHC RDW Plt Count Seg Neutrophils % Lymphocytes % Monocytes % Eosinophils % Basophils % Absolute Neutrophils Absolute Lymphocytes Absolute Monocytes Absolute Eosinophils Absolute Basophils VBG pH VBG pCO2 VBG HCO3 VBG Base Excess Sodium 133.5 L Potassium 3.9 Chloride 99 Carbon Dioxide 25 Anion Gap 10 BUN 18 Creatinine 0.97 Est GFR ( Amer) > 60 Est GFR (Non-Af Amer) 57 L Glucose 117 H Lactic Acid Calcium 8.8 Total Bilirubin 0.7 AST 33 ALT 41 Alkaline Phosphatase 123 Total Protein 5.7 L Albumin 3.1 L Urine Color YELLOW Urine Appearance SLIGHTLY-CLOUDY Urine pH 5.0 Ur Specific [place] 1.012 Urine Protein NEGATIVE Urine Glucose (UA) NEGATIVE Urine Ketones NEGATIVE Urine Blood NEGATIVE Urine Nitrite NEGATIVE Ur Leukocyte Esterase NEGATIVE Urine WBC (Auto) 4 Urine RBC (Auto) 0 08/01/18 05:50 Creatine Kinase 35 Impressions: Chest X-Ray 07/31/18 22:13 IMPRESSION: No acute cardiopulmonary process copyright 2011 [employer]- All Rights Reserved Assessment & Plan - Diagnosis (1) Abscess of multiple sites Is this a current diagnosis for this admission?: Yes - Plan Summary Plan Summary: A/ Multiple skin abscess multiple skin abscess of various size (lower abdomen, right inner thigh, right buttock, right latgeral thigh, left vulva), largest in the abdomen, thigh, and buttock Recent oral abx treatment x 10 days, completed Nop previous medical hx P/ I&D of multiple skin abscess of various size (lower abdomen, right inner thigh, right buttock, right latgeral thigh, left vulva), largest in the abdomen, thigh, and buttock Procedure, risks, benefits, benefits, complications explained to the patient, she understnads, and decides to proceed Continue Vanco/Clinda Patient to be admitted afterward
[2018-08-01] MEDS ORDERED: VANCOMYCIN HCL 0 MG in DEXTROSE 5%-WATER 250 ML IV NR (10:00)
[2018-08-01] MEDS ORDERED: VANCOMYCIN HCL INJ 1000 MG VIAL IV SCH (10:00)
[2018-08-01] MEDS ORDERED: CLINDAMYCIN 600 MG/D5W RTU 600 MG/50 ML RTUPB IV SCH (10:00)
[2018-08-01 10:12] LABS: CREATINE KINASE MB < 0.22 ng/mL (<4.55); TROPONIN I < 0.012 ng/mL
[2018-08-01 10:50] LABS: CREATINE KINASE MB < 0.22 ng/mL (<4.55); TROPONIN I < 0.012 ng/mL
[2018-08-01] MEDS ORDERED: LIDOCAINE 1%/EPINEPHRINE INJ 20 ML VIAL ONE (10:54)
[2018-08-01] MEDS ORDERED: BUPIVACAINE HCL 0.5%-EPI 1:200000 INJ/PF 30 ML VIAL ONE (10:55)
--- NOTE | 2018-08-01 11:05 | RADIOLOGY REPORT (SQ) ---
EXAM DESCRIPTION: CHEST SINGLE VIEW COMPLETED DATE/TIME: 08/01/2018 9:48 am REASON FOR STUDY: shortness of breath COMPARISON: None. EXAM PARAMETERS: NUMBER OF VIEWS: One view. TECHNIQUE: Single frontal radiographic view of the chest acquired. RADIATION DOSE: NA LIMITATIONS: None. FINDINGS: LUNGS AND PLEURA: No opacities, masses or pneumothorax. No pleural effusion. MEDIASTINUM AND HILAR STRUCTURES: No masses. Contour normal. HEART AND VASCULAR STRUCTURES: Mild cardiomegaly BONES: No acute findings. HARDWARE: None in the chest. OTHER: No other significant finding. IMPRESSION: NO ACUTE RADIOGRAPHIC FINDING IN THE CHEST. TECHNICAL DOCUMENTATION: JOB ID: [id number] [employer]- All Rights Reserved Reading location - IP/workstation name: [email or web address]
[2018-08-01 11:35] LABS: URINE AMPHETAMINES SCREEN NEGATIVE; URINE BARBITURATES SCREEN NEGATIVE; URINE BENZODIAZEPINES SCREEN NEGATIVE; URINE COCAINE SCREEN NEGATIVE; URINE MARIJUANA (THC) SCREEN NEGATIVE; URINE METHADONE SCREEN NEGATIVE; URINE PHENCYCLIDINE SCREEN NEGATIVE
[2018-08-01] MEDS ORDERED: ONDANSETRON HCL INJ/PF 4 MG/2 ML SDV IV PRN (12:14)
[2018-08-01] MEDS ORDERED: PROMETHAZINE HCL INJ 25 MG/1 ML VIAL IV PRN ×2 (12:14)
[2018-08-01] MEDS ORDERED: FENTANYL CITRATE INJ/PF 100 MCG/2 ML AMPUL IV PRN ×3 (12:14)
[2018-08-01] MEDS ORDERED: DIPHENHYDRAMINE HCL 50 MG/ML VIAL IV PRN (12:14)
[2018-08-01] MEDS ORDERED: MEPERIDINE HCL/PF INJ 25 MG/1 ML DISP.SYRIN IV PRN (12:14)
[2018-08-01] MEDS ORDERED: NEOMY/BACITRAC ZN/POLY OINT 15 GM ONE ×2 (12:18→12:23)
--- NOTE | 2018-08-01 13:14 | Operative Report ---
Nonrecallable Operative Report DATE OF SURGERY: 08/01/18 PREOPERATIVE DIAGNOSIS: multiple subcutaneous skin abscess (RLQ abdomen, right upper inner thigh, right lower inner gluteus, right lateral thigh, left labia majora) POSTOPERATIVE DIAGNOSIS: same OPERATION: Incision ands drainage of multiple skin aabscesses ((RLQ abdomen, right upper inner thigh, right lower inner gluteus, right lateral thigh, left labia majora) SURGEON: DEWEY WARREN ANESTHESIA: GA - plus 40 mL 1% lidocaine with epinephrine TISSUE REMOVED OR ALTERED: none COMPLICATIONS: none ESTIMATED BLOOD LOSS: negleagible INTRAOPERATIVE FINDINGS: multiple skin abscesses (RLQ abdomen 8 x 11 cm; right upper inner thigh 9 x 8 cm; right lower inner gluteus 11 x 8 cm; right lateral thigh 0.5 cm in size, left labia majora 0.5 cm in size) PROCEDURE: see dictation
[2018-08-01] MEDS ORDERED: FENTANYL CITRATE INJ/PF 100 MCG/2 ML AMPUL ONE (13:27)
[2018-08-01] MEDS ORDERED: MIDAZOLAM 2 MG/2 ML INJ ONE (13:27)
[2018-08-01] MEDS ORDERED: PROPOFOL INJ 200 MG/20 ML VIAL IV ONE (13:27)
[2018-08-01] MEDS ORDERED: ACETAMINOPHEN 1,000 MG/100 ML RTUPB IV ONE (13:27)
[2018-08-01] MEDS ORDERED: DEXMEDETOMIDINE INJ 80 MCG/20 ML VIAL IV ONE (13:27)
[2018-08-01] MEDS ORDERED: ONDANSETRON HCL INJ/PF 4 MG/2 ML SDV ONE (14:29)
[2018-08-01] MEDS ORDERED: METOCLOPRAMIDE HCL INJ/PF 10 MG/2 ML SDV ONE (14:29)
[2018-08-01] MEDS ORDERED: KETOROLAC TROMETHAMINE 60 MG/2 ML SDV ONE (14:29)
[2018-08-01] MEDS ORDERED: LIDOCAINE 2% INJ-PF (20 MG/ML) 2 ML AMPUL ONE (14:29)
[2018-08-01] MEDS ORDERED: ROCURONIUM BROMIDE INJ 50 MG/5 ML VIAL IV ONE (14:29)
[2018-08-01] MEDS ORDERED: SUCCINYLCHOLINE CHLORIDE INJ 200 MG/10 ML VIAL ONE (14:29)
[2018-08-01] MEDS ORDERED: DEXAMETHASONE SOD PHOSPHATE INJ 4 MG/1 ML VIAL ONE (14:29)
[2018-08-01] MEDS ORDERED: NEOMY/BACITRAC ZN/POLY OINT 15 GM TP PRN (14:57)
--- NOTE | 2018-08-01 15:41 | OPERATIVE REPORT E ---
Operative Report NAME: KRISHNA SAMUELS : 1950 AGE: 68Y DATE OF SURGERY: 08/01/2018 ROOM: 321 PREOPERATIVE DIAGNOSIS: Multiple skin abscesses (right lower abdomen, right upper inner thigh, right lower inner gluteus, left labia, right lateral thigh. POSTOPERATIVE DIAGNOSIS: Multiple skin abscesses (right lower abdomen, right upper inner thigh, right lower inner gluteus, left labia, right lateral thigh. PROCEDURE: Incision and drainage of multiple abscesses (right lower abdomen skin, right upper inner thigh, right lower inner gluteus, right lateral thigh, left labia majora. SURGEON: DEWEY WARREN M.D. ANESTHESIA: General plus 40 mL 1% lidocaine with epinephrine mixed with 0.5% Marcaine with epinephrine with a 50:50 volume. FLUIDS: 1000. URINE OUTPUT: 800. COMPLICATIONS: None. 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 The patient gives a history of recent acute diverticulitis with oral antibiotics for 10 days with completion of course of antibiotics. She developed these areas of redness and swelling and pain localized in the lower abdomen, right lower extremity, left labia major, and right lateral thigh. Eventually, she presented to the emergency room with above symptoms and decision was made to take to surgery to undergo incision and drainage of multiple abscesses. DESCRIPTION OF PROCEDURE: The patient was taken to the operating room. The patient was placed in supine position. General anesthesia induced by endotracheal intubation. The lower abdomen, external genitalia, right thigh were prepped and draped in the usual fashion. The abscess located in the right lower quadrant of the abdomen measured 8 x 11 cm. The abscess located in the right inner thigh measured 9 x 8 cm. The abscess located in the right lower inner back measured 11 x 8 cm. The abscess located in the right lateral thigh and left labia majora measured 0.5 cm each. All abscesses with the exception of the abscess of the left labia and right lateral thigh, which were simply incised and curetted, were treated similarly. Each abscess site was palpated by finger and 2 incisions were made on each edge of the palpated abscess. Each incision was about 2 cm in length. The subcutaneous tissue was then entered. Pus was obtained and this was sent for aerobic, anaerobic culture, and Gram stain. The finger was then inserted through either of the skin incisions and then advanced so that a single cavity was obtained. Purulent material was then drained. No odor was noted. The area was then irrigated with normal saline and 0.25-inch Harrison drain was then inserted through each incision and tied with sterile 2-0 silk sutures. After this, each cavity was packed with 2 or 3 inch wide Shell roll soaked in triple antibiotic ointment. After this was accomplished, the skin was cleaned and dried. All incisions were covered with antibiotic ointment, 4 x 4s, ABDs, and tape. The patient tolerated the procedure well. The Hudson catheter was left in place, and she was sent to the recovery room in satisfactory condition. DICTATING PHYSICIAN: DEWEY WARREN M.D. [id number] PHY#: [id number] ID: [id number] JOB#: [id number] ACCT: [id number] cc:DEWEY WARREN M.D. > MTDD
[2018-08-01] MEDS: PANTOPRAZOLE SODIUM 20 MG TABLET.DR PO SCH (15:50)
[2018-08-01] MEDS: DOCUSATE SODIUM 100 MG/10 ML UDC PO SCH ×2 (15:50→17:15)
--- NOTE | 2018-08-01 16:35 | EKG REPORT ---
SEVERITY:- BORDERLINE ECG - SINUS RHYTHM NONSPECIFIC ST-T CHANGES , DIFFUSE : Confirmed by: Allen Elias MD 01-Aug-2018 16:34:08
[2018-08-01 16:49] LABS: CREATINE KINASE MB 0.48 ng/mL (<4.55)
[2018-08-01 16:51] LABS: TROPONIN I < 0.012 ng/mL
[2018-08-01] MEDS: CLINDAMYCIN 600 MG/D5W RTU 600 MG/50 ML RTUPB IV SCH (17:19)
[2018-08-01] MEDS: VANCOMYCIN HCL 750 MG in DEXTROSE 5%-WATER 250 ML IV SCH (22:09)
[2018-08-02] MEDS: CLINDAMYCIN 600 MG/D5W RTU 600 MG/50 ML RTUPB IV SCH ×3 (02:07→19:32)
[2018-08-02] MEDS: NORMAL SALINE 1000 ML 1,000 ML IV PRN (03:50)
[2018-08-02] MEDS: PANTOPRAZOLE SODIUM 20 MG TABLET.DR PO SCH (05:07)
[2018-08-02 05:25] LABS: ABSOLUTE LYMPHOCYTES (AUTO) 0.8 10^3/uL (0.5-4.7); ABSOLUTE MONOCYTES (AUTO) 0.7 10^3/uL (0.1-1.4); ABSOLUTE NEUT (AUTO) 11.2 10^3/uL (1.7-8.2); BASOPHILS % (AUTO) 0.3 % (0-2); HEMATOCRIT 31.2 % (36.0-47.0); HEMOGLOBIN 10.5 g/dL (12.0-15.5); MEAN CORPUSCULAR HEMOGLOBIN 28.6 pg (27.0-33.4); MEAN CORPUSCULAR HGB CONC 33.6 g/dL (32.0-36.0); MEAN CORPUSCULAR VOLUME 85 fl (80-97); MONOCYTES % (AUTO) 5.8 % (3-13); PLATELET COUNT 134 10^3/uL (150-450); RED BLOOD COUNT 3.67 10^6/uL (3.72-5.28); RED CELL DISTRIBUTION WIDTH 14.1 % (11.5-14.0); SEGMENTED NEUTROPHILS % (AUTO) 87.9 % (42-78); TOTAL CELLS COUNTED % (AUTO) 100 %; WHITE BLOOD COUNT 12.8 10^3/uL (4.0-10.5)
[2018-08-02 05:45] LABS: ALANINE AMINOTRANSFERASE 44 U/L (9-52); ALBUMIN 2.9 g/dL (3.5-5.0); ALKALINE PHOSPHATASE 119 U/L (38-126); ANION GAP 12 (5-19); ASPARTATE AMINO TRANSFERASE 39 U/L (14-36); BILIRUBIN,DIRECT 0.4 mg/dL (0.0-0.4); BILIRUBIN,TOTAL 0.4 mg/dL (0.2-1.3); BLOOD UREA NITROGEN 16 mg/dL (7-20); CALCIUM 8.5 mg/dL (8.4-10.2); CARBON DIOXIDE 22 mmol/L (22-30); CHLORIDE 107 mmol/L (98-107); CHOLESTEROL 124.35 mg/dL (0-200); GLUCOSE 153 mg/dL (75-110); POTASSIUM 4.5 mmol/L (3.6-5.0); SODIUM 140.8 mmol/L (137-145); TOTAL PROTEIN 5.6 g/dL (6.3-8.2); TRIGLYCERIDES 99 mg/dL (<150)
[2018-08-02 05:55] LABS: DIRECT LDL 68 mg/dL (<100)
[2018-08-02] MEDS ORDERED: PANTOPRAZOLE SODIUM 20 MG TABLET.DR PO SCH (06:00)
--- NOTE | 2018-08-02 09:32 | PDOC PROGRESS REPORT ---
Subjective Progress Note for:: 08/02/18 Subjective:: 08/02/2018 68 year old female with no significant current past medical history came to the emergency room with complaints of development of skin lesions on the right buttock in the vaginal area right inner thigh and on the abdominal wall for the last 6 days. She had a fever of 102 at home in the emergency room last night is 101.2. Her blood pressure systolic blood pressure dropped to 70 this morning. Patient is asymptomatic communicating well. Prior to these symptoms she was here in the emergency room few weeks ago diagnosed with diverticulitis and was discharged on p.o. antibiotics. She completed 10 days course of antibiotics 6 days after the finishing the antibiotics the skin lesions developed. Denies any nausea vomiting diarrhea or constipation. Complaining of severe headaches. Denies any blurred vision. Denies any urinary symptoms. Denies any recent change in medications. She never had this problem before in her life.medical Consult was called for admission to [facility]. 08/[id number]-yuvb-old female admitted for multiple abscesses status post IND was done. Cultures are pending. Presently on vancomycin and clindamycin. Initially came in with very low blood pressures with IV fluids blood pressure improved to 110/70. Asymptomatic. Reason For Visit: ABSCESS Physical Exam Vital Signs: Temp Pulse Resp BP Pulse Ox 97.6 F 52 L 22 H 118/56 L 94 08/02/18 04:07 08/02/18 07:00 08/02/18 04:07 08/02/18 04:07 08/02/18 04:07 Intake & Output 08/01/18 08/02/18 08/03/18 06:59 06:59 06:59 Intake Total 1999 7003 Output Total 3095 Balance 1999 0651 Weight 84.5 kg 93 kg General appearance: PRESENT: no acute distress, obese Head exam: PRESENT: atraumatic Eye exam: PRESENT: PERRLA Mouth exam: PRESENT: moist, tongue midline Neck exam: ABSENT: carotid bruit, JVD, lymphadenopathy, thyromegaly Respiratory exam: PRESENT: clear to auscultation albert. ABSENT: rales, rhonchi, wheezes Cardiovascular exam: PRESENT: bradycardia GI/Abdominal exam: PRESENT: normal bowel sounds, soft. ABSENT: distended, guarding, mass, organolmegaly, rebound, tenderness Rectal exam: PRESENT: deferred Neurological exam: PRESENT: alert, awake, oriented to person, oriented to place, oriented to time, oriented to situation, CN II-XII grossly intact. ABSENT: motor sensory deficit Skin exam: PRESENT: other - Dressing over the anterior abdominal wall right bu ttock right inner thigh after incision and drainage yesterday. Results Laboratory Results: 08/02/18 04:46 08/02/18 04:46 08/01/18 08/02/18 08/02/18 09:50 04:46 04:46 WBC 12.8 H RBC 3.67 L Hgb 10.5 L Hct 31.2 L MCV 85 MCH 28.6 MCHC 33.6 RDW 14.1 H Plt Count 134 L Seg Neutrophils % 87.9 H Lymphocytes % 6.0 L Monocytes % 5.8 Eosinophils % 0.0 Basophils % 0.3 Absolute Neutrophils 11.2 H Absolute Lymphocytes 0.8 Absolute Monocytes 0.7 Absolute Eosinophils 0.0 Absolute Basophils 0.0 Sodium 140.8 Potassium 4.5 Chloride 107 Carbon Dioxide 22 Anion Gap 12 BUN 16 Creatinine 0.69 Est GFR ( Amer) > 60 Est GFR (Non-Af Amer) > 60 Glucose 153 H Lactic Acid 0.8 Calcium 8.5 Magnesium 2.0 Total Bilirubin 0.4 AST 39 H ALT 44 Alkaline Phosphatase 119 Total Protein 5.6 L Albumin 2.9 L Triglycerides 99 Cholesterol 124.35 LDL Cholesterol Direct 68 VLDL Cholesterol 20.0 HDL Cholesterol 32 L TSH 08/02/18 04:46 WBC RBC Hgb Hct MCV MCH MCHC RDW Plt Count Seg Neutrophils % Lymphocytes % Monocytes % Eosinophils % Basophils % Absolute Neutrophils Absolute Lymphocytes Absolute Monocytes Absolute Eosinophils Absolute Basophils Sodium Potassium Chloride Carbon Dioxide Anion Gap BUN Creatinine Est GFR ( Amer) Est GFR (Non-Af Amer) Glucose Lactic Acid Calcium Magnesium Total Bilirubin AST ALT Alkaline Phosphatase Total Protein Albumin Triglycerides Cholesterol LDL Cholesterol Direct VLDL Cholesterol HDL Cholesterol TSH 2.53 08/01/18 08/01/18 08/01/18 05:50 05:50 09:50 Creatine Kinase 35 37 CK-MB (CK-2) < 0.22 Troponin I < 0.012 08/01/18 08/01/18 08/01/18 09:50 16:09 16:09 Creatine Kinase 54 CK-MB (CK-2) < 0.22 0.48 Troponin I < 0.012 < 0.012 Impressions: Chest X-Ray 05/17/19 09:16 IMPRESSION: NO ACUTE RADIOGRAPHIC FINDING IN THE CHEST. Assessment and Plan - Diagnosis (1) Abscess of multiple sites Is this a current diagnosis for this admission?: Yes Plan: 08/01/2018-patient is going to be admitted to [facility] because of multiple abscesses in different spots of the body associated with the significant hypotension. Plan to start on IV fluids normal saline at 100 cc/h. Surgical consult was requested. Wound cultures blood cultures urine cultures are requested. GI prophylaxis was initiated. Spoke to Dr. Singer's he plan to do I&D today ,so to hold the DVT prophylaxis. Presently on LORELEI hoses. Started on IV morphine 1 mg every 4 as needed for pain. Started on IV vancomycin and IV clindamycin. Plan to repeat the labs tomorrow. 08/02/[id number]-kchp-old female admitted for multiple abscesses status post I&D was done cultures are pending blood pressures are improved WBC count came down to 12,800 no acute events. Plan IV vancomycin and clindamycin and plan is to continue the present management. (2) Hypotension Qualifiers: Hypotension type: unspecified hypotension type Qualified Code(s): I95.9 - Hypotension, unspecified Is this a current diagnosis for this admission?: Yes Plan: 08/01/2018-patient systolic blood pressure this morning is 70. IV fluids are initiated in the emergency room blood pressure is improved to systolic 108 and diastolic around 70. Patient is asymptomatic. Hypotension most likely secondary to sepsis. Patient was requested to take bedrest and fall precautions are requested. 08/02/2018-latest blood pressure is 110/56 hypotension is resolved hypotension most likely secondary to sepsis resolved. (3) Leukocytosis Qualifiers: Leukocytosis type: bandemia Qualified Code(s): D72.825 - Bandemia Is this a current diagnosis for this admission?: Yes Plan: 08/01/2018-WBC count is 13,900 today leukocytosis most likely secondary to underlying sepsis. 08/02/2018-WBC count came down to 12,800 today elevated leukocytosis most likely secondary to sepsis. Plan IV vancomycin and IV clindamycin. (4) Fever Qualifiers: Fever type: unspecified Qualified Code(s): R50.9 - Fever, unspecified Is this a current diagnosis for this admission?: Yes Plan: 08/01/2018-patient complains of fever of 102 at home in the emergency room it was 101.2, patient took Tylenol on the way to the hospital. Fever most likely secondary to underlying sepsis. IV 2018-patient came in with fever of 102 yesterday. Pressure this morning is 97.6. Fever secondary to sepsis is resolving. (5) Sepsis Is this a current diagnosis for this admission?: Yes Plan: 08/01/2018-patient is going to be admitted with sepsis associated with hypotension. Blood cultures wound cultures urine cultures are requested started on IV fluids started on vancomycin and Zosyn. Lactic acid level on admission is 0.8 plan is to repeat the lactic acid levels. 08/02/2018-patient admitted with sepsis and hypotension lactic acid level is 0.8 normal. Patient was given IV fluids and IV vancomycin and Zosyn. IND of the abscess was done. Cultures are pending. Plan is to discontinue IV fluids because hypotension is resolved and continue antibiotic therapy. Waiting for the cultures again. (6) Obesity (BMI 30-39.9) Is this a current diagnosis for this admission?: No Plan: 08/02/2018-patient BMI is 35.2. Diet exercise weight loss lifestyle modifications are discussed with the patient. Dietary consult is going to be requested. - Time Time Spent with patient: 25-34 minutes Medications reviewed and adjusted accordingly: Yes Anticipated discharge: Home
[2018-08-02] MEDS: DOCUSATE SODIUM 100 MG/10 ML UDC PO SCH ×2 (09:36→19:30)
[2018-08-02] MEDS: VANCOMYCIN HCL 750 MG in DEXTROSE 5%-WATER 250 ML IV SCH ×2 (09:39→21:04)
[2018-08-02] MEDS ORDERED: NORMAL SALINE 1000 ML 1,000 ML IV PRN (13:54)
[2018-08-02] MEDS: ENOXAPARIN SODIUM INJ 40 MG/0.4 ML DISP.SYRIN SUBCUT SCH (16:54)
[2018-08-02] MEDS: OXYCODONE-ACETAMINOPHEN 5-325 MG TABLET PO PRN (16:54)
[2018-08-02] MEDS: NEOMY/BACITRAC ZN/POLY OINT 15 GM TP SCH (17:02)
[2018-08-03] MEDS: CLINDAMYCIN 600 MG/D5W RTU 600 MG/50 ML RTUPB IV SCH ×3 (03:34→17:49)
[2018-08-03 05:07] LABS: HEMATOCRIT 30.4 % (36.0-47.0); HEMOGLOBIN 10.1 g/dL (12.0-15.5); MEAN CORPUSCULAR HEMOGLOBIN 28.6 pg (27.0-33.4); MEAN CORPUSCULAR HGB CONC 33.4 g/dL (32.0-36.0); MEAN CORPUSCULAR VOLUME 86 fl (80-97); PLATELET COUNT 180 10^3/uL (150-450); RED BLOOD COUNT 3.55 10^6/uL (3.72-5.28); RED CELL DISTRIBUTION WIDTH 14.4 % (11.5-14.0); WHITE BLOOD COUNT 12.1 10^3/uL (4.0-10.5)
[2018-08-03] MEDS: PANTOPRAZOLE SODIUM 20 MG TABLET.DR PO SCH (05:23)
[2018-08-03 05:28] LABS: ALANINE AMINOTRANSFERASE 33 U/L (9-52); ALBUMIN 2.8 g/dL (3.5-5.0); ALKALINE PHOSPHATASE 100 U/L (38-126); ANION GAP 10 (5-19); ASPARTATE AMINO TRANSFERASE 24 U/L (14-36); BILIRUBIN,DIRECT 0.3 mg/dL (0.0-0.4); BILIRUBIN,TOTAL 0.3 mg/dL (0.2-1.3); BLOOD UREA NITROGEN 16 mg/dL (7-20); CALCIUM 8.7 mg/dL (8.4-10.2); CARBON DIOXIDE 22 mmol/L (22-30); CHLORIDE 108 mmol/L (98-107); GLUCOSE 111 mg/dL (75-110); POTASSIUM 4.2 mmol/L (3.6-5.0); SODIUM 140.4 mmol/L (137-145); TOTAL PROTEIN 5.4 g/dL (6.3-8.2)
[2018-08-03 05:30] LABS: ABSOLUTE LYMPHOCYTES# (MANUAL) 2.7 10^3/uL (0.5-4.7); ABSOLUTE MONOCYTES # (MANUAL) 0.5 10^3/uL (0.1-1.4); ABSOLUTE NEUTROPHILS# (MANUAL) 8.8 10^3/uL (1.7-8.2); BAND NEUTROPHILS % (MANUAL) 1 % (3-5); BASOPHILS % (MANUAL) 0 % (0-2); EOSINOPHILS % (MANUAL) 1 % (0-6); LYMPHOCYTES % (MANUAL) 21 % (13-45); MONOCYTES % (MANUAL) 4 % (3-13); SEGMENTED NEUTROPHILS % (MAN) 70 % (42-78); TOTAL CELLS COUNTED 100
[2018-08-03 05:32] LABS: ANISOCYTOSIS 1+; HYPOCHROMASIA 1+
[2018-08-03 05:33] LABS: PLATELET COMMENT ADEQUATE
[2018-08-03 05:34] LABS: MYELOCYTES % (MANUAL) 2 % (0); PLATELET GIANT PRESENT
[2018-08-03 10:05] LABS: VANCOMYCIN,TROUGH 6.8 ug/mL (5.0-20.0)
--- NOTE | 2018-08-03 10:18 | PDOC PROGRESS REPORT ---
Subjective Progress Note for:: 08/03/18 Subjective:: 08/02/2018 68 year old female with no significant current past medical history came to the emergency room with complaints of development of skin lesions on the right buttock in the vaginal area right inner thigh and on the abdominal wall for the last 6 days. She had a fever of 102 at home in the emergency room last night is 101.2. Her blood pressure systolic blood pressure dropped to 70 this morning. Patient is asymptomatic communicating well. Prior to these symptoms she was here in the emergency room few weeks ago diagnosed with diverticulitis and was discharged on p.o. antibiotics. She completed 10 days course of antibiotics 6 days after the finishing the antibiotics the skin lesions developed. Denies any nausea vomiting diarrhea or constipation. Complaining of severe headaches. Denies any blurred vision. Denies any urinary symptoms. Denies any recent change in medications. She never had this problem before in her life.medical Consult was called for admission to [facility]. 08/02/[id number]-wlfi-old female admitted for multiple abscesses status post IND was done. Cultures are pending. Presently on vancomycin and clindamycin. Initially came in with very low blood pressures with IV fluids blood pressure improved to 110/70. Asymptomatic. 08/03/[id number]-txmv-old female came in with multiple skin abscesses status post I&D was done presently on IV clindamycin and vancomycin. Wound cultures came back positive for gram-positive cocci in clusters. Stable. No acute events in the last 24 hours. Patient is going to be downgraded to medical floor. Reason For Visit: ABSCESS Physical Exam Vital Signs: Temp Pulse Resp BP Pulse Ox 98.0 F 71 22 H 101/57 L 94 08/03/18 03:34 08/03/18 07:00 08/03/18 03:34 08/03/18 03:34 08/03/18 03:34 Intake & Output 08/02/18 08/03/18 08/04/18 06:59 06:59 06:59 Intake Total 4032 2991 Output Total 2855 1200 Balance 4693 1791 Weight 93 kg 94.2 kg General appearance: PRESENT: no acute distress, other - Comfortably in the chair reading newspaper. Head exam: PRESENT: atraumatic Eye exam: PRESENT: PERRLA Mouth exam: PRESENT: moist, tongue midline Teeth exam: PRESENT: poor dentation Neck exam: ABSENT: carotid bruit, JVD, lymphadenopathy, thyromegaly Respiratory exam: PRESENT: decreased breath sounds Cardiovascular exam: PRESENT: RRR. ABSENT: diastolic murmur, rubs, systolic murmur Vascular exam: PRESENT: normal capillary refill GI/Abdominal exam: PRESENT: normal bowel sounds, soft. ABSENT: distended, guarding, mass, organolmegaly, rebound, tenderness Rectal exam: PRESENT: deferred Extremities exam: PRESENT: full ROM. ABSENT: calf tenderness, clubbing, pedal edema Neurological exam: PRESENT: alert, awake, oriented to person, oriented to place, oriented to time, oriented to situation, CN II-XII grossly intact. ABSENT: motor sensory deficit Psychiatric exam: PRESENT: appropriate affect, normal mood. ABSENT: homicidal ideation, suicidal ideation Results Laboratory Results: 08/03/18 04:26 08/03/18 04:26 08/03/18 08/03/18 04:26 04:26 WBC 12.1 H RBC 3.55 L Hgb 10.1 L Hct 30.4 L MCV 86 MCH 28.6 MCHC 33.4 RDW 14.4 H Plt Count 180 Seg Neutrophils % Not Reportable Lymphocytes % Not Reportable Monocytes % Not Reportable Eosinophils % Not Reportable Basophils % Not Reportable Absolute Neutrophils Not Reportable Absolute Lymphocytes Not Reportable Absolute Monocytes Not Reportable Absolute Eosinophils Not Reportable Absolute Basophils Not Reportable Sodium 140.4 Potassium 4.2 Chloride 108 H Carbon Dioxide 22 Anion Gap 10 BUN 16 Creatinine 0.79 Est GFR ( Amer) > 60 Est GFR (Non-Af Amer) > 60 Glucose 111 H Calcium 8.7 Magnesium 2.0 Total Bilirubin 0.3 AST 24 ALT 33 Alkaline Phosphatase 100 Total Protein 5.4 L Albumin 2.8 L 07/31/18 23:21 Clean Catch Midstream Urine Culture - Final Mixed Urogenital Martha 08/01/18 08/01/18 08/01/18 05:50 05:50 09:50 Creatine Kinase 35 37 CK-MB (CK-2) < 0.22 Troponin I < 0.012 08/01/18 08/01/18 08/01/18 09:50 16:09 16:09 Creatine Kinase 54 CK-MB (CK-2) < 0.22 0.48 Troponin I < 0.012 < 0.012 Impressions: Chest X-Ray 08/01/18 09:16 IMPRESSION: NO ACUTE RADIOGRAPHIC FINDING IN THE CHEST. Assessment and Plan - Diagnosis (1) Abscess of multiple sites Is this a current diagnosis for this admission?: Yes Plan: 08/01/2018-patient is going to be admitted to [facility] because of multiple abscesses in different spots of the body associated with the significant hypotension. Plan to start on IV fluids normal saline at 100 cc/h. Surgical consult was requested. Wound cultures blood cultures urine cultures are requested. GI prophylaxis was initiated. Spoke to Dr. Singer's he plan to do I&D today ,so to hold the DVT prophylaxis. Presently on LORELEI hoses. Started on IV morphine 1 mg every 4 as needed for pain. Started on IV vancomycin and IV clindamycin. Plan to repeat the labs tomorrow. 08/02/[id number]-rlzz-old female admitted for multiple abscesses status post I&D was done cultures are pending blood pressures are improved WBC count came down to 12,800 no acute events. Plan IV vancomycin and clindamycin and plan is to continue the present management. 12/04/[id number]-rvlr-old admitted with multiple skin abscesses due to unknown cause status post I&D was done cultures were positive for gram-positive cocci in clusters. Presently on IV vancomycin and clindamycin WBC count is 12,100 improving. Afebrile. Blood pressures are stable. (2) Hypotension Qualifiers: Hypotension type: unspecified hypotension type Qualified Code(s): I95.9 - Hypotension, unspecified Is this a current diagnosis for this admission?: Yes Plan: 08/01/2018-patient systolic blood pressure this morning is 70. IV fluids are initiated in the emergency room blood pressure is improved to systolic 108 and diastolic around 70. Patient is asymptomatic. Hypotension most likely secondary to sepsis. Patient was requested to take bedrest and fall precautions are requested. 08/02/2018-latest blood pressure is 110/56 hypotension is resolved hypotension most likely secondary to sepsis resolved. 2018-patient blood pressure is 101/60 stable. Asymptomatic. (3) Leukocytosis Qualifiers: Leukocytosis type: bandemia Qualified Code(s): D72.825 - Bandemia Is this a current diagnosis for this admission?: Yes Plan: 08/01/2018-WBC count is 13,900 today leukocytosis most likely secondary to underlying sepsis. 08/02/2018-WBC count came down to 12,800 today elevated leukocytosis most likely secondary to sepsis. Plan IV vancomycin and IV clindamycin. 2018-patient's WBC count is 12,100 elevated leukocytosis secondary to sepsis resolving. (4) Fever Qualifiers: Fever type: unspecified Qualified Code(s): R50.9 - Fever, unspecified Is this a current diagnosis for this admission?: Yes Plan: 08/01/2018-patient complains of fever of 102 at home in the emergency room it was 101.2, patient took Tylenol on the way to the hospital. Fever most likely secondary to underlying sepsis. 08/02/2018-patient came in with fever of 102 yesterday. Pressure this morning is 97.6. Fever secondary to sepsis is resolving. 08/03/2018-patient is afebrile. Temperature is 88. Blood pressure is 101/60 asymptomatic. Plan is to continue IV antibiotic therapy. (5) Sepsis Is this a current diagnosis for this admission?: Yes Plan: 08/01/2018-patient is going to be admitted with sepsis associated with hypotension. Blood cultures wound cultures urine cultures are requested started on IV fluids started on vancomycin and Zosyn. Lactic acid level on admission is 0.8 plan is to repeat the lactic acid levels. 08/02/2018-patient admitted with sepsis and hypotension lactic acid level is 0.8 normal. Patient was given IV fluids and IV vancomycin and clindamycin. I&D of the abscess was done. Cultures are pending. Plan is to discontinue IV fluids because hypotension is resolved and continue antibiotic therapy. Waiting for the cultures again. 08/03/2018-patient came in with sepsis and hypotension initial lactic acid levels are normal patient received IV fluids hypotension resolved presently on IV vancomycin and Clinda sepsis is resolving. (6) Obesity (BMI 30-39.9) Is this a current diagnosis for this admission?: No - Time Time Spent with patient: 15-24 minutes Medications reviewed and adjusted accordingly: Yes Anticipated discharge: Home
[2018-08-03] MEDS: DOCUSATE SODIUM 100 MG/10 ML UDC PO SCH ×3 (10:29→17:41)
[2018-08-03] MEDS: VANCOMYCIN HCL 750 MG in DEXTROSE 5%-WATER 250 ML IV SCH ×2 (10:30→14:23)
[2018-08-03] MEDS: ENOXAPARIN SODIUM INJ 40 MG/0.4 ML DISP.SYRIN SUBCUT SCH (10:30)
[2018-08-03] MEDS: NEOMY/BACITRAC ZN/POLY OINT 15 GM TP SCH (10:31)
--- NOTE | 2018-08-03 13:05 | PDOC PROGRESS REPORT ---
Subjective Progress Note for:: 08/03/18 Reason For Visit: ABSCESS Physical Exam Vital Signs: Temp Pulse Resp BP Pulse Ox 98.0 F 71 22 H 101/57 L 94 08/03/18 03:34 08/03/18 07:00 08/03/18 03:34 08/03/18 03:34 08/03/18 03:34 Intake & Output 08/02/18 08/03/18 08/04/18 06:59 06:59 06:59 Intake Total 7572 2991 Output Total 2855 1200 Balance 4693 1791 Weight 93 kg 94.2 kg Results Laboratory Results: 08/03/18 04:26 08/03/18 04:26 08/03/18 08/03/18 04:26 04:26 WBC 12.1 H RBC 3.55 L Hgb 10.1 L Hct 30.4 L MCV 86 MCH 28.6 MCHC 33.4 RDW 14.4 H Plt Count 180 Seg Neutrophils % Not Reportable Lymphocytes % Not Reportable Monocytes % Not Reportable Eosinophils % Not Reportable Basophils % Not Reportable Absolute Neutrophils Not Reportable Absolute Lymphocytes Not Reportable Absolute Monocytes Not Reportable Absolute Eosinophils Not Reportable Absolute Basophils Not Reportable Sodium 140.4 Potassium 4.2 Chloride 108 H Carbon Dioxide 22 Anion Gap 10 BUN 16 Creatinine 0.79 Est GFR ( Amer) > 60 Est GFR (Non-Af Amer) > 60 Glucose 111 H Calcium 8.7 Magnesium 2.0 Total Bilirubin 0.3 AST 24 ALT 33 Alkaline Phosphatase 100 Total Protein 5.4 L Albumin 2.8 L 07/31/18 23:21 Clean Catch Midstream Urine Culture - Final Mixed Urogenital Martha 08/01/18 08/01/18 08/01/18 05:50 05:50 09:50 Creatine Kinase 35 37 CK-MB (CK-2) < 0.22 Troponin I < 0.012 08/01/18 08/01/18 08/01/18 09:50 16:09 16:09 Creatine Kinase 54 CK-MB (CK-2) < 0.22 0.48 Troponin I < 0.012 < 0.012 Impressions: Chest X-Ray 08/01/18 09:16 IMPRESSION: NO ACUTE RADIOGRAPHIC FINDING IN THE CHEST. Assessment & Plan - Plan Summary Plan Summary: This is a 68-year-old female status post incision and drainage of multiple abscesses on her abdomen, perineum, and lower extremities. The patient reports that her pain is improving. I have removed her dressings and changed her packing today. There is no obviously purulent material present. I have ordered wet-to-dry dressing changes with packing twice daily. It is okay for the patient to shower (remove dressings and packing, shower, then replace the dressings with packing). I will continue to follow this patient with you. Continue antibiotics.
[2018-08-03] MEDS: VANCOMYCIN HCL 1,500 MG in DEXTROSE 5%-WATER 250 ML IV SCH (23:02)
[2018-08-04] MEDS: CLINDAMYCIN 600 MG/D5W RTU 600 MG/50 ML RTUPB IV SCH ×3 (01:02→17:10)
[2018-08-04 05:21] LABS: HEMATOCRIT 31.4 % (36.0-47.0); HEMOGLOBIN 10.4 g/dL (12.0-15.5); MEAN CORPUSCULAR HEMOGLOBIN 28.3 pg (27.0-33.4); MEAN CORPUSCULAR HGB CONC 33.1 g/dL (32.0-36.0); MEAN CORPUSCULAR VOLUME 85 fl (80-97); PLATELET COUNT 237 10^3/uL (150-450); RED BLOOD COUNT 3.67 10^6/uL (3.72-5.28); WHITE BLOOD COUNT 11.5 10^3/uL (4.0-10.5)
[2018-08-04 05:44] LABS: ABSOLUTE LYMPHOCYTES# (MANUAL) 3.3 10^3/uL (0.5-4.7); ABSOLUTE MONOCYTES # (MANUAL) 0.2 10^3/uL (0.1-1.4); ABSOLUTE NEUTROPHILS# (MANUAL) 7.7 10^3/uL (1.7-8.2); BAND NEUTROPHILS % (MANUAL) 3 % (3-5); BASOPHILS % (MANUAL) 0 % (0-2); EOSINOPHILS % (MANUAL) 2 % (0-6); LYMPHOCYTES % (MANUAL) 29 % (13-45); MONOCYTES % (MANUAL) 2 % (3-13); MYELOCYTES % (MANUAL) 4 % (0); PLATELET COMMENT ADEQUATE; SEGMENTED NEUTROPHILS % (MAN) 57 % (42-78); TOTAL CELLS COUNTED 100
[2018-08-04 05:46] LABS: ANISOCYTOSIS SLIGHT; HYPOCHROMASIA SLIGHT
[2018-08-04 05:47] LABS: METAMYELOCYTES % (MANUAL) 2 % (0); PROMYELOCYTES % (MANUAL) 1 % (0)
[2018-08-04 05:54] LABS: ALANINE AMINOTRANSFERASE 39 U/L (9-52); ALBUMIN 2.7 g/dL (3.5-5.0); ALKALINE PHOSPHATASE 88 U/L (38-126); ANION GAP 8 (5-19); ASPARTATE AMINO TRANSFERASE 20 U/L (14-36); BILIRUBIN,DIRECT 0.2 mg/dL (0.0-0.4); BILIRUBIN,TOTAL 0.2 mg/dL (0.2-1.3); BLOOD UREA NITROGEN 14 mg/dL (7-20); CALCIUM 8.7 mg/dL (8.4-10.2); CARBON DIOXIDE 25 mmol/L (22-30); CHLORIDE 105 mmol/L (98-107); GLUCOSE 81 mg/dL (75-110); POTASSIUM 4.2 mmol/L (3.6-5.0); SODIUM 138.1 mmol/L (137-145); TOTAL PROTEIN 5.2 g/dL (6.3-8.2)
[2018-08-04] MEDS: PANTOPRAZOLE SODIUM 20 MG TABLET.DR PO SCH (06:07)
--- NOTE | 2018-08-04 08:54 | PDOC PROGRESS REPORT ---
Subjective Progress Note for:: 08/04/18 Subjective:: 08/02/2018 68 year old female with no significant current past medical history came to the emergency room with complaints of development of skin lesions on the right buttock in the vaginal area right inner thigh and on the abdominal wall for the last 6 days. She had a fever of 102 at home in the emergency room last night is 101.2. Her blood pressure systolic blood pressure dropped to 70 this morning. Patient is asymptomatic communicating well. Prior to these symptoms she was here in the emergency room few weeks ago diagnosed with diverticulitis and was discharged on p.o. antibiotics. She completed 10 days course of antibiotics 6 days after the finishing the antibiotics the skin lesions developed. Denies any nausea vomiting diarrhea or constipation. Complaining of severe headaches. Denies any blurred vision. Denies any urinary symptoms. Denies any recent change in medications. She never had this problem before in her life.medical Consult was called for admission to [facility]. 08/02/[id number]-drpj-old female admitted for multiple abscesses status post IND was done. Cultures are pending. Presently on vancomycin and clindamycin. Initially came in with very low blood pressures with IV fluids blood pressure improved to 110/70. Asymptomatic. 08/03/[id number]-fqmr-old female came in with multiple skin abscesses status post I&D was done presently on IV clindamycin and vancomycin. Wound cultures came back positive for gram-positive cocci in clusters. Stable. No acute events in the last 24 hours. Patient is going to be downgraded to medical floor. [id number]-cffw-old female admitted with multiple abscesses over the right inner thigh right buttock, abdominal wall and in the perineal area status post IND was done waiting for the cultures report presently on IV vancomycin clindamycin afebrile asymptomatic. Reason For Visit: ABSCESS Physical Exam Vital Signs: Temp Pulse Resp BP Pulse Ox 97.3 F 66 22 H 143/64 H 97 08/04/18 00:18 08/04/18 00:18 08/04/18 00:18 08/04/18 00:18 08/04/18 00:18 Intake & Output 08/03/18 08/04/18 08/05/18 06:59 06:59 06:59 Intake Total 2991 2127 Output Total 1200 Balance 1791 2127 Weight 94.2 kg 90.9 kg General appearance: PRESENT: no acute distress Head exam: PRESENT: atraumatic Eye exam: PRESENT: PERRLA Mouth exam: PRESENT: moist, tongue midline Neck exam: ABSENT: carotid bruit, JVD, lymphadenopathy, thyromegaly Respiratory exam: PRESENT: decreased breath sounds Cardiovascular exam: PRESENT: RRR. ABSENT: diastolic murmur, rubs, systolic murmur GI/Abdominal exam: PRESENT: normal bowel sounds, soft. ABSENT: distended, guarding, mass, organolmegaly, rebound, tenderness Rectal exam: PRESENT: deferred Extremities exam: PRESENT: full ROM. ABSENT: calf tenderness, clubbing, pedal edema Neurological exam: PRESENT: alert, awake, oriented to person, oriented to place, oriented to time, oriented to situation, CN II-XII grossly intact. ABSENT: motor sensory deficit Psychiatric exam: PRESENT: appropriate affect, normal mood. ABSENT: homicidal ideation, suicidal ideation Results Laboratory Results: 08/04/18 04:26 08/04/18 04:26 08/04/18 08/04/18 04:26 04:26 WBC 11.5 H RBC 3.67 L Hgb 10.4 L Hct 31.4 L MCV 85 MCH 28.3 MCHC 33.1 RDW 14.0 Plt Count 237 Seg Neutrophils % Not Reportable Lymphocytes % Not Reportable Monocytes % Not Reportable Eosinophils % Not Reportable Basophils % Not Reportable Absolute Neutrophils Not Reportable Absolute Lymphocytes Not Reportable Absolute Monocytes Not Reportable Absolute Eosinophils Not Reportable Absolute Basophils Not Reportable Sodium 138.1 Potassium 4.2 Chloride 105 Carbon Dioxide 25 Anion Gap 8 BUN 14 Creatinine 0.80 Est GFR ( Amer) > 60 Est GFR (Non-Af Amer) > 60 Glucose 81 Calcium 8.7 Magnesium 1.8 Total Bilirubin 0.2 AST 20 ALT 39 Alkaline Phosphatase 88 Total Protein 5.2 L Albumin 2.7 L 08/01/18 08/01/18 08/01/18 05:50 05:50 09:50 Creatine Kinase 35 37 CK-MB (CK-2) < 0.22 Troponin I < 0.012 08/01/18 08/01/18 08/01/18 09:50 16:09 16:09 Creatine Kinase 54 CK-MB (CK-2) < 0.22 0.48 Troponin I < 0.012 < 0.012 Impressions: Chest X-Ray 08/01/18 09:16 IMPRESSION: NO ACUTE RADIOGRAPHIC FINDING IN THE CHEST. Assessment and Plan - Diagnosis (1) Abscess of multiple sites Is this a current diagnosis for this admission?: Yes Plan: 08/01/2018-patient is going to be admitted to [facility] because of multiple abscesses in different spots of the body associated with the significant hypotension. Plan to start on IV fluids normal saline at 100 cc/h. Surgical consult was requested. Wound cultures blood cultures urine cultures are requested. GI prophylaxis was initiated. Spoke to Dr. Singer's he plan to do I&D today ,so to hold the DVT prophylaxis. Presently on LORELEI hoses. Started on IV morphine 1 mg every 4 as needed for pain. Started on IV vancomycin and IV clindamycin. Plan to repeat the labs tomorrow. 08/02/[id number]-egsi-old female admitted for multiple abscesses status post I&D was done cultures are pending blood pressures are improved WBC count came down to 12,800 no acute events. Plan IV vancomycin and clindamycin and plan is to continue the present management. 08/03/[id number]-jcwo-old admitted with multiple skin abscesses due to unknown cause status post I&D was done cultures were positive for gram-positive cocci in clusters. Presently on IV vancomycin and clindamycin WBC count is 12,100 improving. Afebrile. Blood pressures are stable. 08/04/2018-patient admitted with multiple skin abscesses wound cultures came back positive for gram-positive cocci in clusters presently on IV vancomycin and clindamycin plan is to continue the present management. (2) Hypotension Qualifiers: Qualified Code(s): I95.9 - Hypotension, unspecified Is this a current diagnosis for this admission?: Yes Plan: 08/01/2018-patient systolic blood pressure this morning is 70. IV fluids are initiated in the emergency room blood pressure is improved to systolic 108 and diastolic around 70. Patient is asymptomatic. Hypotension most likely secondary to sepsis. Patient was requested to take bedrest and fall precautions are requested. 08/02/2018-latest blood pressure is 110/56 hypotension is resolved hypotension most likely secondary to sepsis resolved. 08/03/2018-patient blood pressure is 101/60 stable. Asymptomatic. 08/04/2018-patient blood pressure today is 143/64 hypotension is resolved. (3) Leukocytosis Qualifiers: Qualified Code(s): D72.825 - Bandemia Is this a current diagnosis for this admission?: Yes Plan: 08/01/2018-WBC count is 13,900 today leukocytosis most likely secondary to underlying sepsis. 08/02/2018-WBC count came down to 12,800 today elevated leukocytosis most likely secondary to sepsis. Plan IV vancomycin and IV clindamycin. 08/03/2018-patient's WBC count is 12,100 elevated leukocytosis secondary to sepsis resolving. 08/04/2018-WBC count is 11,500 leukocytosis is improving. (4) Fever Qualifiers: Qualified Code(s): R50.9 - Fever, unspecified Is this a current diagnosis for this admission?: Yes Plan: 08/01/2018-patient complains of fever of 102 at home in the emergency room it was 101.2, patient took Tylenol on the way to the hospital. Fever most likely secondary to underlying sepsis. 08/02/2018-patient came in with fever of 102 yesterday. Pressure this morning is 97.6. Fever secondary to sepsis is resolving. 08/03/2018-patient is afebrile. Temperature is 88. Blood pressure is 101/60 asymptomatic. Plan is to continue IV antibiotic therapy. (5) Sepsis Is this a current diagnosis for this admission?: Yes (6) Obesity (BMI 30-39.9) Is this a current diagnosis for this admission?: No - Time Time Spent with patient: 15-24 minutes Medications reviewed and adjusted accordingly: Yes Anticipated discharge: Home
--- NOTE | 2018-08-04 08:59 | PDOC PROGRESS REPORT ---
Subjective Progress Note for:: 08/04/18 Subjective:: no c/o Reason For Visit: ABSCESS Physical Exam Vital Signs: Temp Pulse Resp BP Pulse Ox 97.3 F 66 22 H 143/64 H 97 08/04/18 00:18 08/04/18 00:18 08/04/18 00:18 08/04/18 00:18 08/04/18 00:18 Intake & Output 08/03/18 08/04/18 08/05/18 06:59 06:59 06:59 Intake Total 2991 2127 Output Total 1200 Balance 1791 2127 Weight 94.2 kg 90.9 kg General appearance: PRESENT: no acute distress Skin exam: PRESENT: other - multiple skin abscess sites: abdomen, right thigh, right lower gluteus, all granulating [place]ison, [place] dressings inplace, no drainage, no odor, no erythema, minimal edema, no tenderness Results Laboratory Results: 08/04/18 04:26 08/04/18 04:26 08/04/18 08/04/18 04:26 04:26 WBC 11.5 H RBC 3.67 L Hgb 10.4 L Hct 31.4 L MCV 85 MCH 28.3 MCHC 33.1 RDW 14.0 Plt Count 237 Seg Neutrophils % Not Reportable Lymphocytes % Not Reportable Monocytes % Not Reportable Eosinophils % Not Reportable Basophils % Not Reportable Absolute Neutrophils Not Reportable Absolute Lymphocytes Not Reportable Absolute Monocytes Not Reportable Absolute Eosinophils Not Reportable Absolute Basophils Not Reportable Sodium 138.1 Potassium 4.2 Chloride 105 Carbon Dioxide 25 Anion Gap 8 BUN 14 Creatinine 0.80 Est GFR ( Amer) > 60 Est GFR (Non-Af Amer) > 60 Glucose 81 Calcium 8.7 Magnesium 1.8 Total Bilirubin 0.2 AST 20 ALT 39 Alkaline Phosphatase 88 Total Protein 5.2 L Albumin 2.7 L 08/01/18 08/01/18 08/01/18 05:50 05:50 09:50 Creatine Kinase 35 37 CK-MB (CK-2) < 0.22 Troponin I < 0.012 08/01/18 08/01/18 08/01/18 09:50 16:09 16:09 Creatine Kinase 54 CK-MB (CK-2) < 0.22 0.48 Troponin I < 0.012 < 0.012 Impressions: Chest X-Ray 08/01/18 09:16 IMPRESSION: NO ACUTE RADIOGRAPHIC FINDING IN THE CHEST. Assessment & Plan - Diagnosis (1) Abscess of multiple sites Is this a current diagnosis for this admission?: Yes - Plan Summary Plan Summary: A/ POD#3 after I&D multiple skin abscesses (Abdomen, right thigh, right gluteus)\ patient with no c/o PE shows imrovement of all abscess sites, minimal edema, no erythema, no drainage cultures are still pending (preliminary results: GPC) WBC 11.5 P/ Continue daily dressing changes with triple antibiotic ointment to open wound, pack with 4x4 As soon as final cx results are available, antibiotic course can be appropriately modified and patient could be discharged to home
[2018-08-04] MEDS: ENOXAPARIN SODIUM INJ 40 MG/0.4 ML DISP.SYRIN SUBCUT SCH ×2 (09:16→09:26)
[2018-08-04] MEDS: DOCUSATE SODIUM 100 MG/10 ML UDC PO SCH ×2 (09:16→17:06)
[2018-08-04] MEDS: NEOMY/BACITRAC ZN/POLY OINT 15 GM TP SCH (09:17)
[2018-08-04] MEDS: VANCOMYCIN HCL 1,500 MG in DEXTROSE 5%-WATER 250 ML IV SCH ×2 (09:17→21:23)
[2018-08-04 12:49] LABS: PATH REVIEW PATHOLOGIST REVIEWED
[2018-08-04 12:51] LABS: PATH REVIEW PATHOLOGIST REVIEWED
[2018-08-04] MEDS: OXYCODONE-ACETAMINOPHEN 5-325 MG TABLET PO PRN (23:11)
[2018-08-05] MEDS: CLINDAMYCIN 600 MG/D5W RTU 600 MG/50 ML RTUPB IV SCH ×2 (01:17→10:01)
[2018-08-05] MEDS: PANTOPRAZOLE SODIUM 20 MG TABLET.DR PO SCH (05:22)
[2018-08-05 05:57] LABS: HEMATOCRIT 33.1 % (36.0-47.0); MEAN CORPUSCULAR HEMOGLOBIN 28.1 pg (27.0-33.4); MEAN CORPUSCULAR HGB CONC 33.3 g/dL (32.0-36.0); MEAN CORPUSCULAR VOLUME 85 fl (80-97); PLATELET COUNT 246 10^3/uL (150-450); RED BLOOD COUNT 3.92 10^6/uL (3.72-5.28); RED CELL DISTRIBUTION WIDTH 14.3 % (11.5-14.0); WHITE BLOOD COUNT 11.9 10^3/uL (4.0-10.5)
[2018-08-05 06:32] LABS: ALANINE AMINOTRANSFERASE 30 U/L (9-52); ALBUMIN 2.8 g/dL (3.5-5.0); ALKALINE PHOSPHATASE 81 U/L (38-126); ANION GAP 8 (5-19); ASPARTATE AMINO TRANSFERASE 19 U/L (14-36); BILIRUBIN,DIRECT 0.2 mg/dL (0.0-0.4); BILIRUBIN,TOTAL 0.3 mg/dL (0.2-1.3); BLOOD UREA NITROGEN 10 mg/dL (7-20); CALCIUM 8.7 mg/dL (8.4-10.2); CARBON DIOXIDE 29 mmol/L (22-30); CHLORIDE 103 mmol/L (98-107); GLUCOSE 82 mg/dL (75-110); POTASSIUM 4.3 mmol/L (3.6-5.0); SODIUM 139.6 mmol/L (137-145); TOTAL PROTEIN 5.4 g/dL (6.3-8.2)
[2018-08-05 06:51] LABS: ABSOLUTE LYMPHOCYTES# (MANUAL) 3.1 10^3/uL (0.5-4.7); ABSOLUTE MONOCYTES # (MANUAL) 0.8 10^3/uL (0.1-1.4); ABSOLUTE NEUTROPHILS# (MANUAL) 7.6 10^3/uL (1.7-8.2); BAND NEUTROPHILS % (MANUAL) 3 % (3-5); BASOPHILS % (MANUAL) 0 % (0-2); EOSINOPHILS % (MANUAL) 3 % (0-6); LYMPHOCYTES % (MANUAL) 26 % (13-45); METAMYELOCYTES % (MANUAL) 3 % (0); MONOCYTES % (MANUAL) 7 % (3-13); MYELOCYTES % (MANUAL) 1 % (0); SEGMENTED NEUTROPHILS % (MAN) 57 % (42-78); TOTAL CELLS COUNTED 100
[2018-08-05 06:54] LABS: OVALOCYTES SLIGHT; PLATELET COMMENT ADEQUATE; POIKILOCYTOSIS SLIGHT
[2018-08-05] MEDS: DOCUSATE SODIUM 100 MG/10 ML UDC PO SCH (10:00)
[2018-08-05] MEDS: ENOXAPARIN SODIUM INJ 40 MG/0.4 ML DISP.SYRIN SUBCUT SCH (10:00)
[2018-08-05] MEDS: VANCOMYCIN HCL 1,500 MG in DEXTROSE 5%-WATER 250 ML IV SCH (10:01)
[2018-08-05] MEDS: NEOMY/BACITRAC ZN/POLY OINT 15 GM TP SCH (10:02)
--- NOTE | 2018-08-05 10:24 | PDOC PROGRESS REPORT ---
Subjective Progress Note for:: 08/05/18 Subjective:: No c/o Reason For Visit: ABSCESS Physical Exam Vital Signs: Temp Pulse Resp BP Pulse Ox 97.9 F 61 16 148/69 H 96 08/05/18 07:17 08/05/18 07:17 08/05/18 07:17 08/05/18 07:17 08/05/18 07:17 Intake & Output 08/04/18 08/05/18 08/06/18 06:59 06:59 06:59 Intake Total 2126 2246 Balance 2126 2246 Weight 90.9 kg 87.5 kg General appearance: PRESENT: no acute distress Skin exam: PRESENT: other - Lower abdomen, right inner thigh, and right lower buttock abscesses: all open wounds are granulating, [place] drains in place, no odor, minimal drainage Results Laboratory Results: 08/05/18 05:18 08/05/18 05:18 08/05/18 08/05/18 05:18 05:18 WBC 11.9 H RBC 3.92 Hgb 11.0 L Hct 33.1 L MCV 85 MCH 28.1 MCHC 33.3 RDW 14.3 H Plt Count 246 Seg Neutrophils % Not Reportable Lymphocytes % Not Reportable Monocytes % Not Reportable Eosinophils % Not Reportable Basophils % Not Reportable Absolute Neutrophils Not Reportable Absolute Lymphocytes Not Reportable Absolute Monocytes Not Reportable Absolute Eosinophils Not Reportable Absolute Basophils Not Reportable Sodium 139.6 Potassium 4.3 Chloride 103 Carbon Dioxide 29 Anion Gap 8 BUN 10 Creatinine 0.77 Est GFR ( Amer) > 60 Est GFR (Non-Af Amer) > 60 Glucose 82 Calcium 8.7 Magnesium 1.9 Total Bilirubin 0.3 AST 19 ALT 30 Alkaline Phosphatase 81 Total Protein 5.4 L Albumin 2.8 L 08/01/18 12:13 Abdomen - Abscess Gram Stain - Final 08/01/18 12:13 Abdomen - Abscess Wound Culture - Final Mrsa (Meth Resis Staph Aureus) No Anaerobic Organisms 08/01/18 12:24 Thigh - Right Gram Stain - Final 08/01/18 12:24 Thigh - Right Wound Culture - Final Mrsa (Meth Resis Staph Aureus) No Anaerobic Organisms 08/01/18 12:37 Hip - Right Gram Stain - Final 08/01/18 12:37 Hip - Right Wound Culture - Final Mrsa (Meth Resis Staph Aureus) No Anaerobic Organisms 08/01/18 08/01/18 08/01/18 05:50 05:50 09:50 Creatine Kinase 35 37 CK-MB (CK-2) < 0.22 Troponin I < 0.012 08/01/18 08/01/18 08/01/18 09:50 16:09 16:09 Creatine Kinase 54 CK-MB (CK-2) < 0.22 0.48 Troponin I < 0.012 < 0.012 Impressions: Chest X-Ray 08/01/18 09:16 IMPRESSION: NO ACUTE RADIOGRAPHIC FINDING IN THE CHEST. Assessment & Plan - Diagnosis (1) Abscess of multiple sites Is this a current diagnosis for this admission?: Yes - Plan Summary Plan Summary: A/ POD#4 after I&D of multiple abscesses VSS, AF WBC 11 Wound cx positive for MRSA Clinda and vanco P/ Can change antibiotic regimen to either vancomycin or clindamycin patient can be discharged to home at anytime by the General Surgery viewpoint
[2018-08-05 10:35] LABS: VANCOMYCIN,TROUGH 16.7 ug/mL (5.0-20.0)
--- NOTE | 2018-08-05 13:52 | PDOC DISCHARGE SUMMARY ---
General - Admit/Disc Date/PCP Admission Date/Primary Care Provider: 08/01/18 08:[facility] Discharge Date: 08/05/18 - Discharge Diagnosis (1) Abscess of multiple sites Is this a current diagnosis for this admission?: Yes (2) Fever Is this a current diagnosis for this admission?: Yes (3) Hypotension Is this a current diagnosis for this admission?: Yes (4) Leukocytosis Is this a current diagnosis for this admission?: Yes (5) Obesity (BMI 30-39.9) Is this a current diagnosis for this admission?: No (6) Sepsis Is this a current diagnosis for this admission?: Yes - Additional Information Resuscitation Status: Full Code Discharge Diet: As Tolerated Discharge Activity: Activity As Tolerated Prescriptions: Sulfamethoxazole/Trimethoprim [Bactrim Ds Tablet] 1 each PO BID #20 tablet Home Medications: Acetaminophen [Tylenol 325 mg Tablet] 650 mg PO Q4HP PRN tablet 08/05/18 Neomy Sulf/Bacitrac Zn/Poly [Neosporin Ointment 15 gm] 1 applic TP DAILY tube 08/05/18 Sulfamethoxazole/Trimethoprim [Bactrim Ds Tablet] 1 each PO BID #20 tablet 08/05/18 History of Present Illness History of Present Illness: KRISHNA SAMUELS is a 68 year old female Hospital Course Hospital Course: 08/02/2018 68 year old female with no significant current past medical history came to the emergency room with complaints of development of skin lesions on the right buttock in the vaginal area right inner thigh and on the abdominal wall for the last 6 days. She had a fever of 102 at home in the emergency room last night is 101.2. Her blood pressure systolic blood pressure dropped to 70 this morning. Patient is asymptomatic communicating well. Prior to these symptoms she was here in the emergency room few weeks ago diagnosed with diverticulitis and was discharged on p.o. antibiotics. She completed 10 days course of antibiotics 6 days after the finishing the antibiotics the skin lesions developed. Denies any nausea vomiting diarrhea or constipation. Complaining of severe headaches. Denies any blurred vision. Denies any urinary symptoms. Denies any recent change in medications. She never had this problem before in her life.medical Consult was called for admission to [facility]. 08/02/[id number]-xlkc-old female admitted for multiple abscesses status post IND was done. Cultures are pending. Presently on vancomycin and clindamycin. Initially came in with very low blood pressures with IV fluids blood pressure improved to 110/70. Asymptomatic. 08/03/[id number]-keix-old female came in with multiple skin abscesses status post I&D was done presently on IV clindamycin and vancomycin. Wound cultures came back positive for gram-positive cocci in clusters. Stable. No acute events in the last 24 hours. Patient is going to be downgraded to medical floor. [id number]-axod-old female admitted with multiple abscesses over the right inner thigh right buttock, abdominal wall and in the perineal area status post IND was done waiting for the cultures report presently on IV vancomycin clindamycin afebrile asymptomatic. Hospital course: (1) Abscess of multiple sites 08/01/2018-patient is going to be admitted to [facility] because of multiple abscesses in different spots of the body associated with the significant hypotension. Plan to start on IV fluids normal saline at 100 cc/h. Surgical consult was requested. Wound cultures blood cultures urine cultures are requested. GI prophylaxis was initiated. Spoke to Dr. Singer's he plan to do I&D today ,so to hold the DVT prophylaxis. Presently on LORELEI hoses. Started on IV morphine 1 mg every 4 as needed for pain. Started on IV vancomycin and IV clindamycin. Plan to repeat the labs tomorrow. 08/02/[id number]-blmy-old female admitted for multiple abscesses status post I&D was done cultures are pending blood pressures are improved WBC count came down to 12,800 no acute events. Plan IV vancomycin and clindamycin and plan is to continue the present management. 08/03/[id number]-esht-old admitted with multiple skin abscesses due to unknown cause status post I&D was done cultures were positive for gram-positive cocci in clusters. Presently on IV vancomycin and clindamycin WBC count is 12,100 improv ing. Afebrile. Blood pressures are stable. 08/04/2018-patient admitted with multiple skin abscesses wound cultures came back positive for gram-positive cocci in clusters presently on IV vancomycin and clindamycin plan is to continue the present management. (2) Hypotension 08/01/2018-patient systolic blood pressure this morning is 70. IV fluids are initiated in the emergency room blood pressure is improved to systolic 108 and diastolic around 70. Patient is asymptomatic. Hypotension most likely secondary to sepsis. Patient was requested to take bedrest and fall precautions are requested. 08/02/2018-latest blood pressure is 110/56 hypotension is resolved hypotension most likely secondary to sepsis resolved. 08/03/2018-patient blood pressure is 101/60 stable. Asymptomatic. 08/04/2018-patient blood pressure today is 143/64 hypotension is resolved. (3) Leukocytosis 08/01/2018-WBC count is 13,900 today leukocytosis most likely secondary to underlying sepsis. 08/02/2018-WBC count came down to 12,800 today elevated leukocytosis most likely secondary to sepsis. Plan IV vancomycin and IV clindamycin. 08/03/2018-patient's WBC count is 12,100 elevated leukocytosis secondary to sepsis resolving. 08/04/2018-WBC count is 11,500 leukocytosis is improving. (4) Fever 08/01/2018-patient complains of fever of 102 at home in the emergency room it was 101.2, patient took Tylenol on the way to the hospital. Fever most likely secondary to underlying sepsis. 08/02/2018-patient came in with fever of 102 yesterday. Pressure this morning is 97.6. Fever secondary to sepsis is resolving. 08/03/2018-patient is afebrile. Temperature is 88. Blood pressure is 101/60 asymptomatic. Plan is to continue IV antibiotic therapy. (5) Sepsis (6) Obesity (BMI 30-39.9) Patient is improving and stable. She is cleared for discharge by shoulder surgery. Wound cultures positive for MRSA which is sensitive to Bactrim. Will discharge on oral Bactrim for 10 days. Should follow-up with PCP and surgery after discharge. Time spent 35 minutes. Physical Exam Vital Signs: Temp Pulse Resp BP Pulse Ox 97.9 F 61 16 148/69 H 96 08/05/18 07:17 08/05/18 07:17 08/05/18 07:17 08/05/18 07:17 08/05/18 07:17 Intake & Output 08/04/18 08/05/18 08/06/18 06:59 06:59 06:59 Intake Total 2126 2246 300 Balance 2126 2246 300 Weight 200 lb 6.403 oz 192 lb 14.472 oz Exam: General appearance: PRESENT: no acute distress Head exam: PRESENT: atraumatic Eye exam: PRESENT: PERRLA Mouth exam: PRESENT: moist, tongue midline Neck exam: ABSENT: carotid bruit, JVD, lymphadenopathy, thyromegaly Respiratory exam: PRESENT: decreased breath sounds Cardiovascular exam: PRESENT: RRR. ABSENT: diastolic murmur, rubs, systolic murmur GI/Abdominal exam: PRESENT: normal bowel sounds, soft. ABSENT: distended, guarding, mass, organolmegaly, rebound, tenderness Rectal exam: PRESENT: deferred Extremities exam: PRESENT: full ROM. ABSENT: calf tenderness, clubbing, pedal edema Neurological exam: PRESENT: alert, awake, oriented to person, oriented to place, oriented to time, oriented to situation, CN II-XII grossly intact. ABSENT: motor sensory deficit Psychiatric exam: PRESENT: appropriate affect, normal mood. ABSENT: homicidal ideation, suicidal ideation Results Laboratory Results: 08/05/18 05:18 08/05/18 05:18 08/05/18 08/05/18 05:18 05:18 WBC 11.9 H RBC 3.92 Hgb 11.0 L Hct 33.1 L MCV 85 MCH 28.1 MCHC 33.3 RDW 14.3 H Plt Count 246 Seg Neutrophils % Not Reportable Lymphocytes % Not Reportable Monocytes % Not Reportable Eosinophils % Not Reportable Basophils % Not Reportable Absolute Neutrophils Not Reportable Absolute Lymphocytes Not Reportable Absolute Monocytes Not Reportable Absolute Eosinophils Not Reportable Absolute Basophils Not Reportable Sodium 139.6 Potassium 4.3 Chloride 103 Carbon Dioxide 29 Anion Gap 8 BUN 10 Creatinine 0.77 Est GFR ( Amer) > 60 Est GFR (Non-Af Amer) > 60 Glucose 82 Calcium 8.7 Magnesium 1.9 Total Bilirubin 0.3 AST 19 ALT 30 Alkaline Phosphatase 81 Total Protein 5.4 L Albumin 2.8 L 08/01/18 12:13 Abdomen - Abscess Gram Stain - Final 08/01/18 12:13 Abdomen - Abscess Wound Culture - Final Mrsa (Meth Resis Staph Aureus) No Anaerobic Organisms 08/01/18 12:24 Thigh - Right Gram Stain - Final 08/01/18 12:24 Thigh - Right Wound Culture - Final Mrsa (Meth Resis Staph Aureus) No Anaerobic Organisms 08/01/18 12:37 Hip - Right Gram Stain - Final 08/01/18 12:37 Hip - Right Wound Culture - Final Mrsa (Meth Resis Staph Aureus) No Anaerobic Organisms 08/01/18 08/01/18 08/01/18 05:50 05:50 09:50 Creatine Kinase 35 37 CK-MB (CK-2) < 0.22 Troponin I < 0.012 08/01/18 08/01/18 08/01/18 09:50 16:09 16:09 Creatine Kinase 54 CK-MB (CK-2) < 0.22 0.48 Troponin I < 0.012 < 0.012 Impressions: Chest X-Ray 08/01/18 09:16 IMPRESSION: NO ACUTE RADIOGRAPHIC FINDING IN THE CHEST. Qualifiers - * PATIENT BEING DISCHARGED WITH ANY OF THE FOLLOWING DIAGNOSIS: No Acute Heart Failure Is this a Heart Failure Patient?: No
[2018-08-05 15:13] VITALS: BP 100/60
== END 2018-08-05 15:49 | disposition home health service (06) | DRG 872 ==
LOC: ER 21:33 → EH 08-01 08:57 → 3W 08-01 15:08
PROVIDERS: ADMIT Internal Medicine; ATTEND Internal Medicine
PROC: 0J9800Z Drainage of Abdomen Subcutaneous Tissue and Fascia with Drainage Device, Open Approach (ICD-10-PCS; 2018-08-01)
PROC: 0J9700Z Drainage of Back Subcutaneous Tissue and Fascia with Drainage Device, Open Approach (ICD-10-PCS; 2018-08-01)
PROC: 0J9L00Z Drainage of Right Upper Leg Subcutaneous Tissue and Fascia with Drainage Device, Open Approach (ICD-10-PCS; principal; 2018-08-01 11:15)
DX: A41.9 Sepsis, unspecified organism (principal); L02.211 Cutaneous abscess of abdominal wall; L02.415 Cutaneous abscess of right lower limb; N76.4 Abscess of vulva; L02.31 Cutaneous abscess of buttock; B95.62 Methicillin resistant Staphylococcus aureus infection as the cause of diseases classified elsewhere; E66.9 Obesity, unspecified; Z68.34 Body mass index [BMI] 34.0-34.9, adult
CPT/HCPCS: 300; 36415; 71045; 71046; 80053; 80061; 80202; 80307; 81001; 82550; 82553; 82803; 83036; 83605; 83735; 84443; 84484; 85025; 85610; 87040; 87070; 87075; 87077; 87086; 87186; 87205; 93005; 93010; 96361; 96374; 96375; 99291; A6266; J0131; J0330; J1100; J1200; J1650; J1885; J2250; J2405; J2704; J2765; J3010; J3370; J3490; J7030; J7060; J7120

== ENCOUNTER 2018-09-19 12:28 | Emergency (ER) | payer MEDICARE, OTHER ==
[2018-09-19 12:42] VITALS: BP 120/74
--- NOTE | 2018-09-19 12:57 | ER Document Report ---
ED Medical Screen (RME) - General Chief Complaint: Skin Problem Stated Complaint: SKIN ISSUE Time Seen by Provider: 09/19/18 12:45 Primary Care Provider: AUDREY GONZALES [Primary Care Provider] - Follow up as needed Mode of Arrival: Ambulatory Information source: Patient Notes: Patient is a 68-year-old female presenting to the emergency department with concern for multiple abscesses. Patient reports she was recently admitted to this hospital and just had Harrison drains removed a few days ago. Patient reports new abscesses have now formed on the abdomen, right axilla and on her hand. Patient denies any fevers. Exam: Area of erythema with induration and fluctuance noted to abdomen I have greeted and performed a rapid initial assessment of this patient. A comprehensive ED assessment and evaluation of the patient, analysis of test results and completion of the medical decision making process will be conducted by additional ED providers. I have specifically instructed the patient or family members with the patient to immediately return to any nursing staff should anything change in the patient's condition or with their chief complaint. This medical record was dictated with voice recognizing software. There may be grammatical, syntax errors that are unintended. TRAVEL OUTSIDE OF THE [place] IN LAST 30 DAYS: No - Related Data Allergies/Adverse Reactions: ciprofloxacin Allergy (Severe, Verified 09/19/18 12:30) Blisters metronidazole [From Flagyl] Allergy (Severe, Verified 09/19/18 12:30) Blisters Past Medical History Renal/ Medical History: Denies: Hx Peritoneal Dialysis Past Surgical History: Reports: Hx Breast Surgery - reduction, Hx Cholecystectomy, Hx Tubal Ligation, Other - Breast reduction surgery. Physical Exam - Vital signs Vitals: Temp Pulse Resp BP Pulse Ox 98.4 F 76 16 120/74 93 09/19/18 12:41 09/19/18 12:41 09/19/18 12:41 09/19/18 12:41 09/19/18 12:41 Course - Vital Signs Vital signs: Temp Pulse Resp BP Pulse Ox 98.4 F 76 16 120/74 93 09/19/18 12:41 09/19/18 12:41 09/19/18 12:41 09/19/18 12:41 09/19/18 12:41 Doctor's Discharge - Discharge Referrals: JANET,AUDREY [Primary Care Provider] - Follow up as needed
[2018-09-19] MEDS ORDERED: SULFAMETHOXAZOLE/TRIMETHOPRIM 800-160 MG TABLET PO ONE (14:42)
[2018-09-19] MEDS ORDERED: CEPHALEXIN 500 MG CAPSULE PO ONE (14:42)
--- NOTE | 2018-09-19 14:44 | ER Document Report ---
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 Patient states that she recently had a Harrison drain removed without difficulty approximately 2 weeks ago. She denies any abdominal pain, fever, drainage from the surgical site. Patient also complaining of 5 days of a intermittent productive cough. She denies any associated fever, shortness of breath, sore throat, ear pain. TRAVEL OUTSIDE OF THE [place] IN LAST 30 DAYS: No - HPI Onset: Other Onset/Duration: Gradual, Persistent, Worse Quality of pain: Burning Severity: Mild Associated symptoms: Productive cough. denies: Chest pain, Fever, Headache, Nausea, Vomiting, Shortness of breath, Sweating Exacerbated by: Denies Relieved by: Denies Similar symptoms previously: Yes Recently seen / treated by doctor: Yes - Related Data Allergies/Adverse Reactions: ciprofloxacin Allergy (Severe, Verified 09/19/18 12:30) Blisters metronidazole [From Flagyl] Allergy (Severe, Verified 09/19/18 12:30) Blisters Past Medical History - General Information source: Patient - Social History Smoking Status: Unknown if Ever Smoked Chew tobacco use (# tins/day): No Frequency of alcohol use: None Drug Abuse: None Lives with: Family Family History: Reviewed & Not Pertinent Patient has suicidal ideation: No Patient has homicidal ideation: No Renal/ Medical History: Denies: Hx Peritoneal Dialysis Past Surgical History: Reports: Hx Breast Surgery - reduction, Hx Cholecystectomy, Hx Tubal Ligation, Other - Breast reduction surgery. Review of Systems - Review of Systems Notes: REVIEW OF SYSTEMS: CONSTITUTIONAL : Denies fever, chills, or sweats. Denies recent illness. Denies weight loss, recent hospitalizations. EENT: Denies visual changes, eye pain. Denies sore throat, oral lesions, difficulty swallowing. CARDIOVASCULAR: Denies chest pain. Denies palpitations. Denies lower extremity edema. RESPIRATORY: + cough. Denies shortness of breath, wheezing. GASTROINTESTINAL: Denies abdominal pain or distention. Denies nausea, vomiting, or diarrhea. Denies blood in vomitus, stools, or per rectum. Denies black, tarry stools. Denies constipation. GENITOURINARY: Denies difficulty urinating, painful urination, frequency, blood in urine, or vaginal discharge. MUSCULOSKELETAL: Denies back or neck pain or stiffness. Denies joint pain or swelling. SKIN: + Erythema of the abdomen HEMATOLOGIC : Denies easy bruising or bleeding. LYMPHATIC: Denies swollen glands. NEUROLOGICAL: Denies confusion or altered mental status. Denies loss of co nsciousness. Denies dizziness or lightheadedness. Denies headache. Denies weakness or paralysis. Denies problems difficulty with ambulation, slurred speech. Denies sensory loss, numbness, or tingling. Denies seizures. PSYCHIATRIC: Denies anxiety or stress. Denies depression, suicidal ideation, or homicidal ideation. Denies visual or auditory hallucinations. Physical Exam - Vital signs Vitals: Temp Pulse Resp BP Pulse Ox 98.4 F 76 16 120/74 93 09/19/18 12:41 09/19/18 12:41 09/19/18 12:41 09/19/18 12:41 09/19/18 12:41 - Notes Notes: PHYSICAL EXAMINATION: GENERAL: Well-appearing, well-nourished and in no acute distress. HEAD: Atraumatic, normocephalic. EYES: Pupils equal round and reactive to light, extraocular movements intact, conjunctiva are normal. ENT: Nares patent, oropharynx clear without exudates. Moist mucous membranes. NECK: Normal range of motion, supple without lymphadenopathy LUNGS: Breath sounds clear to auscultation bilaterally and equal. No wheezes rales or rhonchi. HEART: Regular rate and rhythm without murmurs ABDOMEN: Soft, nontender, nondistended abdomen. No guarding, no rebound. No masses appreciated. The by 4 cm area of erythema in the left mid abdomen without associated fluctuance, induration. 2 port sites clean dry intact and without purulent drainage. Female : deferred Musculoskeletal: Normal range of motion, no pitting or edema. No cyanosis. NEUROLOGICAL: Cranial nerves grossly intact. Normal speech, normal gait. Normal sensory, motor exams PSYCH: Normal mood, normal affect. SKIN: The by 4 cm area of erythema in the left mid abdomen without associated fluctuance, induration. 2 port sites clean dry intact and without purulent drainage. Course - Re-evaluation Re-evalutation: 09/19/18 15:04 Patient presents with symptoms most consistent with an acute cellulitis. Vitals within normal limits. Patient does not meet sepsis criteria is overall very well in appearance. Patient will be started on coverage for both staph and strep. At this time will discharge with return precautions and follow-up recommendations. Verbal discharge instructions given a the bedside and opportunity for questions given. Medication warnings reviewed. Patient is in agreement with this plan and has verbalized understanding of return precautions and the need for primary care follow-up in the next 24-72 hours. Presentation is most consistent with a viral upper respiratory infection. Patient is overall well appearance, vitals within normal limits, well-hydrated. Patient denies any headache, neck pain, and has no evidence of meningismus on examination. Lungs are clear bilaterally. No evidence of respiratory distress. Based on clinical exam and history, I do not suspect an acute pneumonia, meningitis, strep pharyngitis, or an acute encephalitis. No laboratory or imaging testing is indicated at this time. Will discharge patient with return precautions and followup recommendations. They are in agreement this plan have verbalized understanding return precautions. - Vital Signs Vital signs: Temp Pulse Resp BP Pulse Ox 98.4 F 76 16 120/74 93 09/19/18 12:41 09/19/18 12:41 09/19/18 12:41 09/19/18 12:41 09/19/18 12:41 - Diagnostic Test Radiology reviewed: Image reviewed, Reports reviewed Discharge - Discharge Clinical Impression: Abdominal wall cellulitis URI (upper respiratory infection) Qualifiers: URI type: unspecified URI Qualified Code(s): J06.9 - Acute upper respiratory infection, unspecified Condition: Good Disposition: HOME, SELF-CARE Instructions: Upper Respiratory Illness ([facility]), Viral Syndrome ([facility]) Additional Instructions: The rash is likely due to infection of your skin. You need to take the antibiotics as prescribed. Do not stop even if the rash goes away until you have completed all the antibiotics. The area of redness was traced out here in the emergency department with a marking pen. You need to return to emergency department if the redness spreads outside of this area by more than 2 cm in any direction. You should also return if you develop fevers with temperature greater than 101, persistent vomiting, worsening pain, or have any other symptoms that are concerning to you. Your symptoms are most likely due to a viral infection it should resolve over the next 7-14 days. You should take [id number] guanfacine per bottle instructions to help thin the mucus. For nasal congestion: I would recommend that you get [id number] oxymetazoline also known is afrin. Use only per bottle instructions and be sure to never use this for more than 3 days if you can develop severe rebound congestion. You may also use tylenol or ibuprofen as needed for aches and thorat discomfort. Please be sure to drink plenty of fluids and get rest. Return to the emergency department he began having difficulty breathing, chest pain, persistent vomiting, or any other symptoms that are concerning to you. Prescriptions: Cephalexin Monohydrate [Keflex 500 mg Capsule] 500 mg PO BID 7 Days #14 capsule Sulfamethoxazole/Trimethoprim [Bactrim Ds Tablet] 1 each PO BID 7 Days #14 tablet Referrals: [facility] [Primary Care [facility]] - Follow up in 3-5 days
--- NOTE | 2018-09-19 14:53 | RADIOLOGY REPORT (SQ) ---
EXAM DESCRIPTION: CHEST 2 VIEWS COMPLETED DATE/TIME: 09/19/2018 2:39 pm REASON FOR STUDY: cough COMPARISON: [facility] CHEST 08/01/2018, 07/31/2018 EXAM PARAMETERS: NUMBER OF VIEWS: two views TECHNIQUE: Digital Frontal and Lateral radiographic views of the chest acquired. RADIATION DOSE: NA LIMITATIONS: none FINDINGS: LUNGS AND PLEURA: No opacities, masses or pneumothorax. No pleural effusion. MEDIASTINUM AND HILAR STRUCTURES: No masses or contour abnormalities. HEART AND VASCULAR STRUCTURES: Heart normal size. No evidence for failure. BONES: No acute findings. HARDWARE: Right upper quadrant clips post cholecystectomy OTHER: No other significant finding. IMPRESSION: NO ACUTE RADIOGRAPHIC FINDING IN THE CHEST. TECHNICAL DOCUMENTATION: JOB ID: [id number] [employer]- All Rights Reserved Reading location - IP/workstation name: [email or web address]
== END 2018-09-19 14:58 | disposition home or self-care (01) ==
LOC: ER 12:28
DX: L03.311 Cellulitis of abdominal wall (principal); J06.9 Acute upper respiratory infection, unspecified; R05 Cough; Z98.890 Other specified postprocedural states; Z86.14 Personal history of Methicillin resistant Staphylococcus aureus infection; Z88.1 Allergy status to other antibiotic agents
CPT/HCPCS: 71046; 99283

== ENCOUNTER 2019-04-19 23:04 | Emergency (ER) | payer OTHER, MEDICARE ==
--- NOTE | 2019-04-19 23:28 | ER Document Report ---
ED Medical Screen (RME) - General Stated Complaint: FALL/KNEE PAIN Time Seen by Provider: 04/19/19 23:26 Primary Care Provider: [facility] [Primary Care [facility]] - Follow up as needed Notes: 68-year-old female presents for left knee. Patient states she was walking her dog and was trying to avoid another dog when she tripped and fell. Patient states she is having pain from her left knee all the way up. Patient states she tried to ice her knee however the pain was too much. Patient states she took 1 tramadol before coming but states she is not due for another 1 until 1 AM however is asking if she can take it early. Told patient that she have to wait. Left knee mild tenderness noted. Full range of motion to left hip and left knee. Anterior drawer negative. Posterior drawer negative. I have greeted and performed a rapid initial assessment of this patient. A comprehensive ED assessment and evaluation of the patient, analysis of test results and completion of the medical decision making process with be conducted by additional ED providers. TRAVEL OUTSIDE OF THE [place] IN LAST 30 DAYS: No - Related Data Allergies/Adverse Reactions: ciprofloxacin Allergy (Severe, Verified 09/19/18 12:30) Blisters metronidazole [From Flagyl] Allergy (Severe, Verified 09/19/18 12:30) Blisters Past Medical History Renal/ Medical History: Denies: Hx Peritoneal Dialysis Past Surgical History: Reports: Hx Breast Surgery - reduction, Hx Cholecystectomy, Hx Tubal Ligation, Other - Breast reduction surgery. Physical Exam - Vital signs Vitals: Temp Pulse Resp BP Pulse Ox 98.5 F 81 14 122/78 97 04/19/19 23:17 04/19/19 23:17 04/19/19 23:17 04/19/19 23:17 04/19/19 23:17 Course - Vital Signs Vital signs: Temp Pulse Resp BP Pulse Ox 98.5 F 81 14 122/78 97 04/19/19 23:17 04/19/19 23:17 04/19/19 23:17 04/19/19 23:17 04/19/19 23:17 Doctor's Discharge - Discharge Referrals: [facility] [Primary [facility]] - Follow up as needed
[2019-04-19] MEDS ORDERED: IBUPROFEN 800 MG TABLET PO ONE (23:29)
--- NOTE | 2019-04-20 00:16 | RADIOLOGY REPORT (SQ) ---
EXAM DESCRIPTION: XR LEFT HIP AND PELVIS, 2 VIEWS COMPLETED DATE/TME: 04/19/2019 23:26 CLINICAL HISTORY: 68 years, Female, fall, injury COMPARISON: None. NUMBER OF VIEWS: TECHNIQUE: LIMITATIONS: None. FINDINGS: No fracture or dislocation. There are degenerative changes in the lower lumbar spine. IMPRESSION: No fracture or dislocation. copyright 2010 [employer]- All Rights Reserved
--- NOTE | 2019-04-20 00:24 | RADIOLOGY REPORT (SQ) ---
EXAM: XR Left Knee, 3 Views EXAM DATE/TIME: 04/20/2019 at 12:02 AM CLINICAL HISTORY: The patient is 68 years old and is Female; fall, injury TECHNIQUE: Three views of the left knee. COMPARISON: No relevant prior studies available. FINDINGS: BONES/JOINTS: There is a moderate knee joint effusion. Mild osteophytosis at the medial compartment of the joint. No significant joint space narrowing. No acute fracture visualized. No dislocation. SOFT TISSUES: No significant soft tissue swelling visualized. IMPRESSION: 1. Moderate knee joint effusion. 2. No acute fracture visualized.
--- NOTE | 2019-04-20 00:31 | ER Document Report ---
ED General - General Chief Complaint: Knee Injury Stated Complaint: FALL/KNEE PAIN Time Seen by Provider: 04/19/19 23:26 Primary Care Provider: ISAAC TEJADA MD [ACTIVE PROVISIONAL STAFF] - Follow up in 3-5 days [facility] [Primary Care Provider] - Follow up in 3-5 days Notes: 68-year-old female presents for left knee pain. Patient states she was walking her dog and was trying to avoid another dog when she tripped and fell. Patient states she is having pain from her left knee all the way up to her left hip. Patient states she tried to ice her knee however the pain was too much. Patient states she took 1 tramadol before coming to ER with little relief. Denies any other injuries, head injury, or LOC. TRAVEL OUTSIDE OF THE [place] IN LAST 30 DAYS: No - Related Data Allergies/Adverse Reactions: ciprofloxacin Allergy (Severe, Verified 09/19/18 12:30) Blisters metronidazole [From Flagyl] Allergy (Severe, Verified 09/19/18 12:30) Blisters Past Medical History - Social History Smoking Status: Former Smoker Family History: Reviewed & Not Pertinent Patient has suicidal ideation: No Patient has homicidal ideation: No Renal/ Medical History: Denies: Hx Peritoneal Dialysis Past Surgical History: Reports: Hx Breast Surgery - reduction, Hx Cholecystectomy, Hx Tubal Ligation, Other - Breast reduction surgery. Review of Systems - Review of Systems Notes: Constitutional: Negative for fever. HENT: Negative for sore throat. Eyes: Negative for visual changes. Cardiovascular: Negative for chest pain. Respiratory: Negative for shortness of breath. Gastrointestinal: Negative for abdominal pain, vomiting or diarrhea. Genitourinary: Negative for dysuria. Musculoskeletal: Positive for left hip and left knee pain. Negative for back pain. Skin: Negative for rash. Neurological: Negative for headaches, weakness or numbness. 10 point ROS negative except as marked above and in HPI. Physical Exam - Vital signs Vitals: Temp Pulse Resp BP Pulse Ox 98.5 F 81 14 122/78 97 04/19/19 23:17 04/19/19 23:17 04/19/19 23:17 04/19/19 23:17 04/19/19 23:17 - Notes Notes: GENERAL: Well-appearing, well-nourished and in no acute distress. HEAD: Atraumatic, normocephalic. EYES: Extraocular movements intact, sclera anicteric, conjunctiva are normal. NECK: Normal range of motion, supple without lymphadenopathy or JVD. EXTREMITIES: No clubbing or cyanosis. Left knee: mild tenderness noted. Full range of motion to left hip and left knee. Anterior drawer negative. Posterior drawer negative. NEUROLOGICAL: Cranial nerves II through XII grossly intact. Normal speech, normal gait. PSYCH: Normal mood, normal affect. SKIN: Warm, Dry, normal turgor, no rashes or lesions noted. Course - Re-evaluation Re-evalutation: 04/20/19 nontoxic, well-appearing 68-year-old female presents with left knee and left hip pain after falling. Tenderness to left knee. Full range of motion of left knee. And left hip. PE is otherwise unremarkable. X-rays of left hip is normal. X-ray of left knee shows an effusion and osteoarthritis. Discussed all results with patient. Patient given follow-up with Ortho and with PCP. Return precautions given. Patient voices understanding and agrees with plan of care. - Vital Signs Vital signs: Temp Pulse Resp BP Pulse Ox 98.5 F 81 14 122/78 97 04/19/19 23:17 04/19/19 23:17 04/19/19 23:17 04/19/19 23:17 04/19/19 23:17 Procedures - Immobilization Left Knee Pre-Proc Neuro Vasc Exam: Normal Immobilizer type: Gio wrap Performed by: PCT Post-Proc Neuro Vasc Exam: Normal, Unchanged from pre-exam Discharge - Discharge Clinical Impression: Left hip pain Left knee pain Qualifiers: Chronicity: acute Qualified Code(s): M25.562 - Pain in left knee Condition: Stable Disposition: HOME, SELF-CARE Instructions: Ice & Elevation ([facility]), Suspected Internal Knee Injury ([facility]), Sprained Knee ([facility]) Additional Instructions: Your x-ray of your left knee and left hip did not show any fractures. Please take ibuprofen as prescribed. Take your narcotic pain medication (Tramadol) as prescribed. Rest, ice, and elevate your knee. Follow up with ortho doctor listed in 3-5 days. Follow up with your primary care doctor in 1 week. Return to ER for any worsening symptoms, including increased pain, increased swelling, redness to area, inability to walk on leg, fever, chest pain, shortness of breath or any other symptoms that are concerning to you. Prescriptions: Ibuprofen [Motrin 800 mg Tablet] 800 mg PO Q8H PRN #30 tab PRN Reason: Referrals: [facility] [Primary [facility]] - Follow up in 3-5 days ISAAC TEJADA MD [ACTIVE PROVISIONAL STAFF] - Follow up in 3-5 days
[2019-04-20 00:58] VITALS: BP 109/96
== END 2019-04-20 01:00 | disposition home or self-care (01) ==
LOC: ER 23:04
DX: M25.562 Pain in left knee (principal); M25.552 Pain in left hip; W01.0XXA Fall on same level from slipping, tripping and stumbling without subsequent striking against object, initial encounter; Y93.K1 Activity, walking an animal; Z88.3 Allergy status to other anti-infective agents; Z90.49 Acquired absence of other specified parts of digestive tract; Z98.51 Tubal ligation status
CPT/HCPCS: 99283